=== PATIENT | female | born 1955 | race Caucasian/White ===

== ENCOUNTER 2018-03-02 05:55 | Day surgery (SDC) | payer OTHER ==
[2018-03-02] MEDS ORDERED: NA CHLORIDE 0.9% 1,000 ML ONE ×2 (06:15→07:06)
[2018-03-02] MEDS ORDERED: FENTANYL CITR 100 MCG/2 ML ONE (06:57)
[2018-03-02] MEDS ORDERED: PROPOFOL 200 MG/20 ML VIAL IV ONE (06:57)
[2018-03-02] MEDS ORDERED: MIDAZOLAM HCL 2 MG/2 ML INJ ONE (06:59)
[2018-03-02] MEDS ORDERED: LIDOCAINE 1% W/EPI 1:100,000 MDV 50 ML VIAL ONE (07:06)
[2018-03-02 10:05] VITALS: BP 110/56; TEMP 97.4; O2SAT 97
--- NOTE | 2018-03-02 20:17 | OP ---
Date of Procedure: 03/02/2018 Surgeon: Geeta Castellanos MD Demurrage Man: No assistance. Preoperative Diagnosis: Postmenopausal bleeding. Postoperative Diagnosis: Postmenopausal bleeding. Procedures Performed: Hysteroscopy, dilation and curettage. Anesthesia: MAC plus paracervical block. Specimens: Endometrial curettings, scant. Complications: No complications. Drains: No drains. Ebl: Minimal. Findings: Uterus anteflexed. No uterine prolapse was seen. Posterior wall without any prolapse. T he cervical canal was unremarkable. Endometrial cavity was empty. Scrapings were done. However, th e amount of tissue was scant. Please note that the POP-Q was -2, -2, -6, 3 cm thick, and 7, -3, -3, and -7. Description Of Procedure: After informed consent was verified, patient was taken back to the OR, vini last in a supine fashion on the operating table. After MAC was given and a speculum was placed, the c ervix was exposed. Anterior lip injected with 1% lidocaine mixed with 1:100,000 epinephrine 10 cc. A single-tooth tenaculum was placed on the cervix. The cervix appeared to be flushed with the vagina . Prep x3 with Betadine was done after getting a paracervical block. Then, the diagnostic hysterosc ope was used with a SlimLine to enter the cervical canal and traversed into the uterine cavity. The cavity was empty and the endometrium appeared to be unremarkable and atrophic. Both tubal ostia were visualized and normal. The scope was pulled out. There were no cavity distortions. The cervix was dilated to 14-[place]. A #1 endometrial curette was used to perform curettings. Scant amount of cur ettings were obtained. These were sent for permanent pathology to the pathologist. All the instrume nts were removed. There was hemostasis at the tenaculum placement site. The patient was recovered f rom anesthesia and taken to the PACU in stable condition. Instrument, needle, and sponge counts were correct at the end of the case. She tolerated the procedure well. She has an appointment in 1 week to see me back. ASTER/MARCIE Voice ID: [id number] Report ID: [id number]
== END 2018-03-02 08:25 | disposition home or self-care (01) ==
LOC: OR 05:55
PROVIDERS: ATTEND Obstetrics & Gynecology
PROC: 0UJD8ZZ Inspection of Uterus and Cervix, Via Natural or Artificial Opening Endoscopic (ICD-10-PCS; 2018-03-02)
PROC: 0UDB7ZX Extraction of Endometrium, Via Natural or Artificial Opening, Diagnostic (ICD-10-PCS; principal; 2018-03-02 07:00)
DX: N95.0 Postmenopausal bleeding (principal); E11.9 Type 2 diabetes mellitus without complications; I10 Essential (primary) hypertension; E03.9 Hypothyroidism, unspecified; I25.10 Atherosclerotic heart disease of native coronary artery without angina pectoris; Z95.5 Presence of coronary angioplasty implant and graft; Z79.02 Long term (current) use of antithrombotics/antiplatelets; Z79.82 Long term (current) use of aspirin; Z80.41 Family history of malignant neoplasm of ovary; Z80.49 Family history of malignant neoplasm of other genital organs; Z82.49 Family history of ischemic heart disease and other diseases of the circulatory system
CPT/HCPCS: 82962; 88305; J2250; J3010; J7030

== ENCOUNTER 2018-03-19 14:46 | Observation (INO) | payer OTHER ==
[2018-03-19 15:35] LABS: Absolute Lymphocytes (CBC) 2.7 K/uL (0.7-4.9); Absolute Monocytes 0.5 K/uL (0.1-1.3); Absolute Neutrophil 3.8 K/uL (1.8-8.0); Basophils % 1.1 % (0-1.3); Eosinophils % 3.9 % (0-4.4); Hematocrit 42.4 % (36.0-45.0); Lymphocytes % 36.3 % (15.3-44.8); MCH 30.5 pg (27.0-35.0); MCV 90.5 fL (80-100); MPV 10.7 fL (7.6-11.3); Monocytes % 7.3 % (3.3-12.3); RBC Red Blood Cell Count 4.69 M/uL (3.86-4.86)
[2018-03-19 15:46] LABS: Albumin 3.5 g/dL (3.4-5.0); Bilirubin Direct 0.1 mg/dL (0-0.2); Bilirubin Total 0.4 mg/dL (0.2-1.0); Potassium 3.5 mmol/L (3.5-5.1); Protein, Total 7.6 g/dL (6.4-8.2)
--- NOTE | 2018-03-19 16:07 | RAD REPORT ---
EXAM DESCRIPTION: RAD - Chest Single View - 03/19/2018 4:01 pm CLINICAL HISTORY: SOB Chest pain. COMPARISON: CHEST PA AND LAT 2 VIEW dated 06/15/2012 FINDINGS: Portable technique limits examination quality. The lungs are grossly clear. The heart is normal in size. No displaced fractures. IMPRESSION: No acute intrathoracic process suspected.
[2018-03-19 16:33] LABS: Protime INR 1.07
[2018-03-19] MEDS ORDERED: MECLIZINE HCL 12.5 MG TAB ONE (16:43)
[2018-03-19 17:00] LABS: Magnesium 1.6 mg/dL (1.8-2.4); Troponin (Emerg Dept Use Only) 0.03 ng/mL (0.0-0.045)
--- NOTE | 2018-03-19 17:10 | RAD REPORT ---
EXAM DESCRIPTION: CT - Head Brain Wo Cont - 03/19/2018 4:49 pm CLINICAL HISTORY: DIZZINESS Drowsiness COMPARISON: No comparisons TECHNIQUE: All CT scans are performed using dose optimization technique as appropriate and may inclu de automated exposure control or mA/KV adjustment according to patient size. FINDINGS: No intracranial hemorrhage, hydrocephalus or extra-axial fluid collection.No areas of brai n edema or evidence of midline shift. The paranasal sinuses and mastoids are clear. The calvarium is intact. IMPRESSION: No acute intracranial abnormality.
[2018-03-19 17:20] LABS: Urine Blood TRACE (NEG); Urine Glucose 2+ (NEG); Urine Protein NEGATIVE (NEG); Urine pH 5.5 (5.0-7.0)
[2018-03-19 17:50] LABS: Urine Bacteria 20-50 /HPF (<20); Urine Culture Reflex Order NOT NEEDED; Urine RBC <5 /HPF (NONE SEEN); Urine Yeast FEW (NONE SEEN)
--- NOTE | 2018-03-19 18:08 | EDPHYS ---
Physician Documentation [facility] Name: Lynda Tsang Age: 63 yrs Sex: Female : 1955 Arrival Date: 03/19/2018 Time: 14:47 Bed 23 Private MD: Kamaljit Peralta ED Physician Jimbo Montoya HPI: 03/19 15:02 This 63 yrs old Female presents to ER via Wheelchair with complaints of Blood jmm Pressure Problem - LOW. 15:02 The patient presents with dizziness. Onset: The symptoms/episode began/occurred jmm gradually, months. Modifying factors: The symptoms are alleviated by lying down, the symptoms are aggravated by standing up. This is a 63 year old female with a history of CAD, HTN, DM, HLP that presents to the ED with complaints of low blood pressure reading at home. Patient is concerned she may have lost too much blood. Patient currently denies vaginal bleeding but states that 2 weeks prior having a D and C due to abnormal vaginal bleeding. Patient states she develops dizziness mainly on moving and walking which has been ongoing for months. Patient states that yesterday developed increased weakness on exertion. . Historical: - Allergies: 14:54 Lisinopril; la1 14:54 CITRIC ACID; la1 - Home Meds: 15:28 Nature's Thyroid [Active]; Fish Oil oral oral [Active]; kr2 15:32 Jardiance oral oral [Active]; biotin oral 5000 mcg oral [Active]; B Complex Plus kr2 Vitamin C 78-94-69-5-300 mg oral cap [Active]; amlodipine 2.5 mg tab 1 tab once daily [Active]; clopidogrel 75 mg oral tab 1 tab once daily [Active]; chlorthalidone 25 mg Oral tab 1 tab once daily [Active]; losartan 100 mg oral tab 1 tab once daily [Active]; rosuvastatin 10 mg oral tab 1 tab once daily [Active]; aspirin 81 mg Oral TbEC 1 tab once daily [Active]; Vitamin D3 oral oral [Active]; - PMHx: 14:54 Hypertension; Diabetes - NIDDM; High Cholesterol; la1 - PSHx: 14:54 Heart stents; D \T\ C; cataract; rectocele; la1 - Immunization history:: Adult Immunizations up to date. - Social history:: Smoking status: unknown. - Ebola Screening: : No symptoms or risks identified at this time. ROS: 15:02 Constitutional: Negative for fever, chills, and weight loss, Cardiovascular: Negative [facility] for chest pain, palpitations, and edema, Respiratory: Negative for shortness of breath, cough, wheezing, and pleuritic chest pain. 15:02 Neuro: Positive for dizziness, weakness. 15:02 All other systems are negative. Exam: 15:02 Head/Face: atraumatic. [facility] 15:02 Constitutional: The patient appears alert, awake, anxious. 15:02 Cardiovascular: Rate: normal, Rhythm: regular, Pulses: no pulse deficits are appreciated. 15:02 Respiratory: the patient does not display signs of respiratory distress, Respirations: normal, Breath sounds: are clear throughout. 15:02 Abdomen/GI: Inspection: abdomen appears normal, Bowel sounds: normal, Palpation: abdomen is soft and non-tender, in all quadrants. 15:02 Back: ROM is normal. 15:02 Skin: Appearance: Color: normal in color. 15:02 Neuro: Orientation: is normal, Mentation: is normal, Memory: is normal, Cerebellar function: is grossly normal. 15:02 Psych: Behavior/mood is pleasant, cooperative. 15:02 Neuro: Cranial nerves: right lateral nystagmus. [facility] Vital Signs: 14:57 BP 150 / 70; Pulse 91; Resp 16; Temp 97.1; Pulse Ox 98% on R/A; Weight 95.71 kg; Height la1 5 ft. 8 in. (172.72 cm); 16:20 BP 144 / 68 LA Supine (auto/lg); Pulse 85; Pulse Ox 96% on R/A; jp3 16:24 BP 125 / 67 LA Sitting (auto/lg); Pulse 91; Pulse Ox 95% on R/A; jp3 16:26 BP 142 / 67 LA Standing (auto/lg); Pulse 101; Pulse Ox 95% on R/A; jp3 18:30 BP 145 / 68; Pulse 86; Resp 17; Pulse Ox 99% ; kr2 20:24 BP 133 / 55; Pulse 85; Resp 19; Pulse Ox 99% on R/A; kr2 21:20 BP 148 / 73; Pulse 82; Resp 17; Pulse Ox 99% on R/A; kr2 14:57 Body Mass Index 32.08 (95.71 kg, 172.72 cm) la1 MDM: 15:02 Patient medically screened. issac 18:05 Data reviewed: vital signs, nurses notes. Counseling: I had a detailed discussion with smitha the patient and/or guardian regarding: the historical points, exam findings, and any diagnostic results supporting the discharge/admit diagnosis, lab results, radiology results, the need for further work-up and treatment in the hospital. ED course: i discussed the patient with Dr. Barnett whom accepted admission. . 03/19 15:04 Order name: Basic Metabolic Panel; Complete Time: 16:03 [facility] 03/19 15:04 Order name: CBC with Diff; Complete Time: 16:03 [facility] 03/19 15:04 Order name: Creatinine for Radiology; Complete Time: 16:03 [facility] 03/19 15:04 Order name: Hepatic Function; Complete Time: 16:03 [facility] 03/19 15:04 Order name: Lipase; Complete Time: 16:03 [facility] 03/19 15:04 Order name: Type And Screen; Complete Time: 17:08 [facility] 03/19 15:17 Order name: Magnesium; Complete Time: 17:08 [facility] 03/19 15:17 Order name: NT PRO-BNP; Complete Time: 17:08 [facility] 03/19 15:17 Order name: PT-INR; Complete Time: 16:44 [facility] 03/19 15:17 Order name: Troponin (emerg Dept Use Only); Complete Time: 17:08 [facility] 03/19 17:10 Order name: Urine Dipstick--Ancillary (enter results); Complete Time: 17:33 sp 03/19 17:13 Order name: Urine Microscopic Only; Complete Time: 17:55 [facility] 03/19 17:13 Order name: Urine Culture [facility] 03/19 18:12 Order name: Basic Metabolic Panel [facility] 03/19 15:17 Order name: XRAY Chest (1 view); Complete Time: 16:16 [facility] 03/19 15:17 Order name: EKG; Complete Time: 15:18 [facility] 03/19 16:32 Order name: CT Head Brain wo Cont; Complete Time: 17:33 [facility] 03/19 18:12 Order name: Consistent Carb (ADA) [address] [facility] 03/19 18:12 Order name: EKG Electrocardiogram [facility] 03/19 18:12 Order name: EKG Electrocardiogram [facility] 03/19 18:13 Order name: CBC with Automated Diff [facility] 03/19 18:13 Order name: CBC with Automated Diff [facility] 03/19 18:13 Order name: Troponin I [facility] 03/19 18:13 Order name: Troponin I [facility] 03/19 18:13 Order name: Troponin I [facility] 03/19 18:22 Order name: Chest For PE Angio CT [facility] 03/19 19:05 Order name: CT [facility] 03/19 15:04 Order name: IV Saline Lock; Complete Time: 15:24 [facility] 03/19 15:04 Order name: Labs collected and sent; Complete Time: 15:24 [facility] 03/19 15:06 Order name: Orthostatic Blood Pressure; Complete Time: 16:37 [facility] 03/19 15:17 Order name: Cardiac monitoring; Complete Time: 15:25 [facility] 03/19 15:17 Order name: EKG - Nurse/Tech; Complete Time: 15:45 [facility] 03/19 15:17 Order name: O2 Per Protocol; Complete Time: 15:25 [facility] 03/19 15:17 Order name: O2 Sat Monitoring; Complete Time: 15:25 [facility] 03/19 18:12 Order name: EKG Electrocardiogram [facility] 03/19 18:12 Order name: EKG Electrocardiogram [facility] Administered Medications: 16:38 Drug: Meclizine 25 mg Route: PO; kr2 18:03 Follow up: Response: No adverse reaction kr2 18:31 Drug: Magnesium Sulfate 1 grams Route: IVPB; Infused Over: 1 hrs; Site: right wrist; kr2 20:26 Follow up: Response: No adverse reaction; IV Status: Completed infusion kr2 19:48 Not Given (Patient Refused): Lovenox 1 mg/kg Sub-Q once kr2 Disposition: 03/20 07:12 Co-signature as Attending Physician, Jimbo Montoya MD I agree with the assessment and issac plan of care. Disposition: 03/19/18 18:06 Hospitalization ordered by Phong Barnett for Observation. Preliminary diagnosis are Weakness, Abnormal electrocardiogram [ECG] [EKG]. - Bed requested for Telemetry/MedSurg (observation). - Status is Observation. kr2 - Condition is Stable. - Problem is new. - Symptoms are unchanged. UTI on Admission? Yes Signatures: Dispatcher [employer] EDMS Arline Curran, Jimbo Snowden RN, MD MD cha Mickail, Joel, PA PA [facility] Pete Larson RN RN tim1 Laura Jiménez RN RN kr2 Corrections: (The following items were deleted from the chart) 03/19 18:21 15:02 This is a 63 year old female with a history of CAD, HTN, DM, HLP that presents to [facility] the ED with complaints of low blood pressure reading at home. Patient is concerned she may have lost too much blood. Patient currently denies vaginal bleeding but states that 2 weeks prior having a D and C due to abnormal vaginal bleeding. Patient states she develops dizziness mainly on moving and walking which has been ongoing for months. Patient also complains of ringing of her ears. Patient states she is partially def in the right ear. . [facility] 20:34 18:06 Hospitalization Ordered by Phong Barnett MD for Observation. Preliminary diagnosis is Weakness; Abnormal electrocardiogram [ECG] [EKG]. Bed requested for Telemetry/MedSurg (observation). Status is Observation. Condition is Stable. Problem is new. Symptoms are unchanged. UTI on Admission? Yes. [facility] 21:32 20:34 03/19/2018 18:06 Hospitalization Ordered by Phong Barnett MD for Observation. kr2 Preliminary diagnosis is Weakness; Abnormal electrocardiogram [ECG] [EKG]. Bed requested for Telemetry/MedSurg (observation). Status is Observation. Condition is Stable. Problem is new. Symptoms are unchanged. UTI on Admission? Yes. mervin
--- NOTE | 2018-03-19 18:08 | ER ---
Nurse's Notes [facility] Name: Lynda Tsang Age: 63 yrs Sex: Female : 1955 Arrival Date: 03/19/2018 Time: 14:47 Bed 23 Private MD: Kamaljit Peralta Diagnosis: Weakness;Abnormal electrocardiogram [ECG] [EKG] Presentation: 03/19 14:55 Presenting complaint: Patient states: I had a D+ C on March [address] Marti sprague and on Tuesday I started bleeding again, pt states bleeding has stopped now but her her BP has been low at home the last 2 days. Transition of care: patient was not received from another setting of care. Onset of symptoms was March 19, 2018. Risk Assessment: Do you want to hurt yourself or someone else? Patient reports no desire to harm self or others. Initial Sepsis Screen: Does the patient meet any 2 criteria? No. Patient's initial sepsis screen is negative. Does the patient have a suspected source of infection? No. Patient's initial sepsis screen is negative. Care prior to arrival: None. 14:55 Method Of Arrival: Wheelchair la1 14:55 Acuity: ORESTES 3 la1 Historical: - Allergies: 14:54 Lisinopril; la1 14:54 CITRIC ACID; la1 - Home Meds: 15:28 Nature's Thyroid [Active]; Fish Oil oral oral [Active]; kr2 15:32 Jardiance oral oral [Active]; biotin oral 5000 mcg oral [Active]; B Complex Plus kr2 Vitamin C 54-93-96-5-300 mg oral cap [Active]; amlodipine 2.5 mg tab 1 tab once daily [Active]; clopidogrel 75 mg oral tab 1 tab once daily [Active]; chlorthalidone 25 mg Oral tab 1 tab once daily [Active]; losartan 100 mg oral tab 1 tab once daily [Active]; rosuvastatin 10 mg oral tab 1 tab once daily [Active]; aspirin 81 mg Oral TbEC 1 tab once daily [Active]; Vitamin D3 oral oral [Active]; - PMHx: 14:54 Hypertension; Diabetes - NIDDM; High Cholesterol; la1 - PSHx: 14:54 Heart stents; D \T\ C; cataract; rectocele; la1 - Immunization history:: Adult Immunizations up to date. - Social history:: Smoking status: unknown. - Ebola Screening: : No symptoms or risks identified at this time. Screenin:00 Abuse screen: Denies threats or abuse. Denies injuries from another. Nutritional kr2 screening: No deficits noted. Tuberculosis screening: No symptoms or risk factors identified. Fall Risk None identified. Assessment: 15:00 General: Appears in no apparent distress. comfortable, well groomed, well developed, kr2 well nourished, Behavior is calm, cooperative, appropriate for age. Pain: Denies pain. Neuro: Level of Consciousness is awake, alert, obeys commands, Oriented to person, place, time, situation. Cardiovascular: Capillary refill < 3 seconds in bilateral fingers Patient's skin is warm and dry. Respiratory: Airway is patent Respiratory effort is even, unlabored, Respiratory pattern is regular, symmetrical. GI: Abdomen is flat, non-distended, Bowel sounds present X 4 quads. Abd is soft and non tender X 4 quads. : Reports vaginal bleeding that is bright red, brown, light flow. EENT: Oral mucosa is moist. Derm: Skin is intact, is healthy with good turgor, Skin is pink, warm \T\ dry. Musculoskeletal: Circulation, motion, and sensation intact. 16:00 Reassessment: Patient appears in no apparent distress at this time. Patient and/or kr2 family updated on plan of care and expected duration. Pain level reassessed. Patient is alert, oriented x 3, equal unlabored respirations, skin warm/dry/pink. 16:48 Reassessment: Patient in CT at this time. kr2 17:30 Reassessment: Patient appears in no apparent distress at this time. Patient and/or kr2 family updated on plan of care and expected duration. Pain level reassessed. Patient is alert, oriented x 3, equal unlabored respirations, skin warm/dry/pink. Patient denies pain at this time. Patient states feeling better. 18:30 Reassessment: Patient appears in no apparent distress at this time. Patient and/or kr2 family updated on plan of care and expected duration. Pain level reassessed. Patient is alert, oriented x 3, equal unlabored respirations, skin warm/dry/pink. Patient denies pain at this time. 19:30 Reassessment: Patient appears in no apparent distress at this time. Patient and/or kr2 family updated on plan of care and expected duration. Pain level reassessed. Patient is alert, oriented x 3, equal unlabored respirations, skin warm/dry/pink. Patient denies pain at this time. 20:09 Reassessment: Received call from Dr. Barnett. Telephone order read back for .45% kr2 Normal Saline to be administered \T\ 70ml/hour. Order entered in [employer], see [employer] MAR. 20:23 Reassessment: Patient appears in no apparent distress at this time. Patient and/or kr2 family updated on plan of care and expected duration. Pain level reassessed. Patient is alert, oriented x 3, equal unlabored respirations, skin warm/dry/pink. Patient states she has not had any further vaginal bleeding since arrival to the hospital Patient denies pain at this time. Patient states feeling better. Vital Signs: 14:57 BP 150 / 70; Pulse 91; Resp 16; Temp 97.1; Pulse Ox 98% on R/A; Weight 95.71 kg; Height la1 5 ft. 8 in. (172.72 cm); 16:20 BP 144 / 68 LA Supine (auto/lg); Pulse 85; Pulse Ox 96% on R/A; jp3 16:24 BP 125 / 67 LA Sitting (auto/lg); Pulse 91; Pulse Ox 95% on R/A; jp3 16:26 BP 142 / 67 LA Standing (auto/lg); Pulse 101; Pulse Ox 95% on R/A; jp3 18:30 BP 145 / 68; Pulse 86; Resp 17; Pulse Ox 99% ; kr2 20:24 BP 133 / 55; Pulse 85; Resp 19; Pulse Ox 99% on R/A; kr2 21:20 BP 148 / 73; Pulse 82; Resp 17; Pulse Ox 99% on R/A; kr2 14:57 Body Mass Index 32.08 (95.71 kg, 172.72 cm) la1 ED Course: 14:47 Patient arrived in ED. sb2 14:48 Kamaljit Peralta MD is Private Physician. sb2 14:57 Triage completed. la1 14:57 Arm band placed on left wrist. la1 14:58 Roberto Mojica PA is [facility]. jmm 14:58 Jimbo Montoya MD is Attending Physician. jmm 15:00 Patient has correct armband on for positive identification. Bed in low position. Call kr2 light in reach. Side rails up X 1. teletypesetter monitor on. Pulse ox on. NIBP on. Door closed. Warm blanket given. Head of bed elevated. 15:05 Laura Jiménez, MARCIAL is Primary Nurse. kr2 15:15 Inserted saline lock: 20 gauge in right wrist, using aseptic technique. kr2 16:01 XRAY Chest (1 view) In Process Unspecified. EDMS 16:03 X-ray completed. Portable x-ray completed in exam room. Patient tolerated procedure kp1 well. 16:48 CT completed. Patient tolerated procedure well. Patient moved back from CT. bq 16:49 CT Head Brain wo Cont In Process Unspecified. EDMS 17:17 Urine Dipstick--Ancillary (enter results) Sent. jp3 17:17 Urine Microscopic Only Sent. jp3 17:17 Urine Culture Sent. jp3 18:06 Phong Barnett MD is Hospitalizing Provider. [facility] 18:58 CT completed. Patient moved to CT via wheelchair. Patient moved back from CT. cw1 20:23 Repeat lab(s) drawn. by va, sent to lab. kr2 20:55 No provider procedures requiring assistance completed. Patient admitted, IV remains in kr2 place. Administered Medications: 16:38 Drug: Meclizine 25 mg Route: PO; kr2 18:03 Follow up: Response: No adverse reaction kr2 18:31 Drug: Magnesium Sulfate 1 grams Route: IVPB; Infused Over: 1 hrs; Site: right wrist; kr2 20:26 Follow up: Response: No adverse reaction; IV Status: Completed infusion kr2 19:48 Not Given (Patient Refused): Lovenox 1 mg/kg Sub-Q once kr2 Outcome: 18:06 Decision to Hospitalize by Provider. [facility] 20:58 Admitted to Med/surg accompanied by tech, via stretcher, room 216, with chart, Report kr2 called to MARCIAL Olivier 20:58 Condition: stable 20:58 Instructed on the need for admit, Demonstrated understanding of instructions. 21:32 Patient left the ED. kr2 Signatures: Dispatcher [employer] EDMS Roberto Mojica PA PA Ann-Marie Arias Crystal cw1 Pete Larson RN RN la1 Lucille Welch kp1 Laura Jiménez RN RN kr2 Rosalinda Pavon sb2 Ramone Pozo jp3 Corrections: (The following items were deleted from the chart) 15:45 15:15 Inserted saline lock: 20 gauge in left wrist, using aseptic technique. kr2 kr2 20:24 20:23 Reassessment: Patient appears in no apparent distress at this time. Patient kr2 and/or family updated on plan of care and expected duration. Pain level reassessed. Patient is alert, oriented x 3, equal unlabored respirations, skin warm/dry/pink. Patient denies pain at this time. Patient states feeling better. kr2 20:55 18:31 Magnesium Sulfate 1 grams IVPB in right antecubital over 1 hrs kr2 kr2
[2018-03-19] MEDS ORDERED: ACETAMINOPHEN 500 MG TAB PO PRN (18:11)
[2018-03-19] MEDS ORDERED: MAGNESIUM SULFATE 1 gm IVPB 1 GM/100 ML BAG IV ONE (18:34)
[2018-03-19] MEDS ORDERED: ENOXAPARIN 100 MG/ML SYR SQ ONE (18:51)
--- NOTE | 2018-03-19 19:04 | RAD REPORT ---
EXAM DESCRIPTION: CT - Chest For Pe Angio - 03/19/2018 6:56 pm CLINICAL HISTORY: Chest pain. shortness of breath COMPARISON: No comparisons TECHNIQUE: CT angiogram of the pulmonary arteries was performed with MIP. All CT scans are performed using dose optimization technique as appropriate and may include automated exposure control or mA/KV adjustment according to patient size. FINDINGS: No evidence of pulmonary thromboembolism. No acute aortic finding demonstrated. The lungs are clear. No significant pericardial or pleural fluid. 9 mm pericardial lymph node identified. No concerning bony finding. IMPRESSION: No evidence of pulmonary thromboembolism. No acute lung findings.
--- NOTE | 2018-03-19 19:24 | P.HP ---
Certification for Inpatient With expected LOS: <2 Midnights Practitioner: I am a practitioner with admitting privileges, knowledge of patient current condition, hospital course, and medical plan of care. Services: Services provided to patient in accordance with Admission requirements found in Title 42 Section 412.3 of the Code of Federal Regulations Patient History Date of Service: 03/19/18 Reason for admission: Dizziness History of Present Illness: Patient is 63 years of age has experienced intermittent dizziness as got worse over the past 2 days an 8 she felt woozy on standing up patient recently had a D and C done by Dr. Alfaro March 01. Recently she noticed some vaginal bleeding. History of coronary artery disease patient denies any chest pain the some associated shortness of breath patient has deliberately lost 20 lb in weight with dieting as also recently started on a new medication denies any weakness of extremities for symptoms of stroke Allergies adhesive Allergy (Verified 02/28/18 13:41) Rash hydrocodone [Hydrocodone] Allergy (Verified 02/28/18 13:41) very sensitive, over sedated, nausea lisinopril Adverse Reaction (Mild, Verified 02/28/18 13:41) COUGH latex Adverse Reaction (Verified 02/28/18 13:41) unknown Home Medications: Amlodipine [Norvasc*] 2.5 mg PO [id number] 06/11/15 Aspirin 81 mg PO DAILY 06/11/15 Biotin [Nail-Ex] 5,000 mcg PO DAILY 06/11/15 Chlorthalidone [Hygroton 25mg Tab*] 25 mg PO [id number] 06/11/15 Clopidogrel Bisulfate [Plavix*] 75 mg PO DAILY 06/11/15 Losartan Potassium 100 mg PO [id number] 06/11/15 Rosuvastatin [Crestor*] 10 mg PO DAILY 06/11/15 Thyroid Tab [[place] Thyroid*] 30 mg PO DAILY 06/11/15 Ferrous Sulfate [Iron] 65 mg PO DAILY 06/22/16 L.acidoph,Paracasei, B.lactis [Probiotic] 1 each PO DAILY 06/22/16 Dulaglutide [Trulicity] 1.5 mg SQ DAILY 02/28/18 Empagliflozin [Jardiance] 25 mg PO DAILY 02/28/18 Insulin Degludec [Tresiba Flextouch U-100] 0 unit SQ DAILY 02/28/18 - Past Medical/Surgical History Diabetic: Yes -: Hypothirod -: hypertension -: hypothyroid -: Macular edema -: Coronary artery dizzy -: right foot -: 2 cardiac stents -: edilma cataract lens implants - Family History Father -: Cancer, Liver disease - Social History Alcohol use: No CD- Drugs: No Caffeine use: No Review of Systems General: Weakness Respiratory: Shortness of Breath Neurological: As per HPI Physical Examination - Vital Signs Temperature: 97.1 F Blood Pressure: 150/70 Pulse: 91 Respirations: 16 Pulse Ox (%): 98 - Physical Exam General: Alert, Oriented x3 HEENT: Atraumatic Neck: Supple Respiratory: Clear to auscultation bilaterally Cardiovascular: No edema, Regular rate/rhythm, Normal S1 S2 Gastrointestinal: Normal bowel sounds, Soft and benign Musculoskeletal: No clubbing, No swelling Integumentary: No rashes, No breakdown Neurological: Normal speech, Normal strength at 5/5 x4 extr, Cranial nerves 3- 12 intact - Studies Laboratory Data (last 24 hrs) 03/19/18 15:55: PT 12.6 H, INR 1.07 03/19/18 15:55: Magnesium 1.6 L 03/19/18 15:15: Creatinine 1.20 03/19/18 15:15: WBC 7.3, Hgb 14.3, Hct 42.4, Plt Count 237 03/19/18 15:15: Sodium 139, Potassium 3.5, BUN 26 H, Creatinine 1.20, Glucose 127 H, Total Bilirubin 0.4, AST 22, ALT 28, Alkaline Phosphatase 73, Lipase 69 L Assessment and Plan - Problems (Diagnosis) (1) Dizziness Current Visit: Yes Status: Acute Plan: Patient is 63 years of age admitted with acute on chronic dizziness does wear present over the past 2 days the also had a D and C and was complaining of some vaginal bleeding . Patient had a slight drop and a blood pressure phone sitting but not on standing no evidence of thromboembolism chest x-rays clear she denies any chest pain is a history of coronary artery disease she has had some stents put in seen by a Dr. Almazan recently troponins is so far negative minimal EKG changes as per ER physician continue to monitor her ambulate patient has mild hypercalcemia BNP is also elevated Patient is taking in chart a in's amlodipine Plavix chlorthalidone he has been not been verified yet possible that she has had side effect of medication also has mild hypo magnesium may be side effect of chlorthalidone - Advance Directives Does patient have a Living Will: No Does patient have a Durable POA for Healthcare: No
[2018-03-19] MEDS: NACHLORIDE 0.45% 1,000 ML IV SCH (20:00)
[2018-03-19] MEDS ORDERED: NACHLORIDE 0.45% 1,000 ML IV ONE (20:06)
[2018-03-19 21:47] VITALS: BMI 32.5
[2018-03-20] MEDS ORDERED: NITROGLYCERIN 0.4 MG/TAB SL ONE (04:38)
[2018-03-20 05:37] LABS: Absolute Lymphocytes (CBC) 2.7 K/uL (0.7-4.9); Absolute Monocytes 0.7 K/uL (0.1-1.3); Basophils % 0.9 % (0-1.3); Eosinophils % 3.7 % (0-4.4); Lymphocytes % 35.1 % (15.3-44.8); MCH 30.7 pg (27.0-35.0); MCV 90.2 fL (80-100); MPV 10.8 fL (7.6-11.3); Monocytes % 8.9 % (3.3-12.3); RBC Red Blood Cell Count 4.32 M/uL (3.86-4.86)
[2018-03-20 05:55] LABS: Potassium 3.4 mmol/L (3.5-5.1)
--- NOTE | 2018-03-20 05:56 | P.PN ---
Date of Service: 03/20/18 I was called with possible patient was complaining of chest pain . She described like a tightness sensation in substernal area. Previous to start the pain, the patient has had a short episode of SVT, about 6 seconds reported by telemetry. Subsequently she received 1 tab of nitro SL, resolving completely her symptoms. EKG shows no new changes compared with previous. Will order serial cardiac enzymes, track surfacing machine operator evaluation and echocardiogram.
--- NOTE | 2018-03-20 08:05 | EKG ---
Test Date: 2018-03-20 Test Time: 04:21:27 Roll Line Operator: RENÉ MEASUREMENT RESULTS: Intervals: Rate: 74 ID: [id number] QRSD: 84 QT: 370 QTc: 410 Annabella: P: 79 ID: [id number] QRS: 87 T: 8 INTERPRETIVE STATEMENTS: Normal sinus rhythm Nonspecific ST and T wave abnormality Abnormal ECG Compared to ECG 03/19/2018 15:34:12 T-wave abnormality no longer present ST (T wave) deviation still present Electronically Signed On 03-20-18 08:04:48 CDT by Joaquin Almazan
--- NOTE | 2018-03-20 08:09 | EKG ---
Test Date: 2018-03-19 Test Time: 15:34:12 Mmi Teacher: JILLIAN MEASUREMENT RESULTS: Intervals: Rate: 81 [place]: 162 QRSD: 80 QT: 378 QTc: 439 Tolar: P: 15 [place]: 162 QRS: 80 T: -11 INTERPRETIVE STATEMENTS: Normal sinus rhythm Nonspecific ST abnormality Non specific T wave abnormality Abnormal ECG Compared to ECG 06/12/2015 06:49:56 T-wave abnormality still present Electronically Signed On 03-20-18 08:08:58 CDT by Joaquin Almazan
[2018-03-20] MEDS ORDERED: ASPIRIN 81 MG CHEWABLE TABLET PO SCH (09:00)
[2018-03-20] MEDS: ROSUVASTATIN 10 MG TAB PO SCH (09:00)
[2018-03-20] MEDS: HOME MED 1 EA UNK (Empagliflozin [Jardiance] 25 MG) PO SCH (09:00)
[2018-03-20] MEDS: ASPIRIN EC 81 MG TAB PO SCH (09:00)
[2018-03-20] MEDS: BIOTIN 5000 MCG PO SCH (09:00)
[2018-03-20] MEDS ORDERED: HOME MED 1 EA UNK (Dulaglutide [Trulicity] 1.5 MG) SQ SCH (09:00)
[2018-03-20] MEDS: THYROID 30 MG TAB PO SCH (09:00)
[2018-03-20] MEDS ORDERED: REGADENOSON 0.4 MG/5 ML SYR IV ONE (09:19)
[2018-03-20] MEDS: NACHLORIDE 0.45% 1,000 ML IV SCH (11:20)
--- NOTE | 2018-03-20 11:39 | RAD REPORT ---
EXAM DESCRIPTION: NM - Rest Stress Cardiac Imaging - 03/20/2018 11:20 am CLINICAL HISTORY: Chest pain COMPARISON: None. TECHNIQUE: The patient was administered 10.4 mCi of Tc 99m Sestamibi prior to resting SPECT imaging of the heart. The patient was then administered 31.9 mCi of Tc 99m Sestamibi following exercise or ph armacologic stress. Multiplanar SPECT images were reviewed. FINDINGS: The end diastolic volume is 78 ml, the end systolic volume is 29 ml, and the ejection frac tion is 63 %. No stress-induced ischemic changes are identifiable. There is a moderately large fixed defect along t he inferolateral wall that could be scarring, diaphragm attenuation or a combination. IMPRESSION: No stress-induced ischemic change. Moderate fixed defect inferolateral wall could be scarring, attenuation artifact or a combination. Ventricular volumes and ejection fraction are normal.
--- NOTE | 2018-03-20 12:44 | TREADPHA ---
DX: CHEST PAIN Date of Study: 03/20/2018 Ht: 5 8 Wt: 214 lb 0 oz Consulting Physician: KATI MEDICATIONS: TYLENOL, ASPIRIN, HYGROTON, CRESTOR, ARMOUR THYROID. HISTORY: 63 YEAR OLD FEMALE WITH COMPLAINTS OF CHEST PAIN. MEDICAL HISTORY: HYPERTENSION, DIABETES MELLITUS, HIGH CHOLESTEROL, 2 CARDIAC STENTS PHYSICIAL EXAMINATION: RESTING B.P.: 127/67 RESTING H.R.: 87 RESTING EKG: SINUS NONSPECIFIC ST AND T ABNORMALITY. PROTOCOL: LEXISCAN EXERCISE TIME: 3:30 B.P. AT PEAK STRESS: 149/75 IMPRESSION: LEXISCAN INJECTED, CARDIOLITE INJECTED PER PROTOCOL. SEE NUCLEAR MEDICINE REPORT. NO SUPRAVENTRICULAR TACHYCARDIA. NO VENTRICULAR TACHYCARDIA. NO PREMATURE VENTRICULAR COMPLEXES. PAIN 8/10 AFTER ADMINISTRATION OF LEXISCAN. EASED UP TO LESS THEN 5 IN RECOVERY. NONDIAGNOSTIC EXERCISE LEXISCAN STRESS.
--- NOTE | 2018-03-20 13:02 | P.PN ---
Subjective Date of Service: 03/20/18 Chief Complaint: Dizziness Patient seen and examined at bedside with RN. Chart reviewed. Case discussed with cardiology at this time. Patient has no complaints to offer overnight. Is currently awaiting stress test this morning Review of Systems 10-point ROS is otherwise unremarkable Physical Examination - Vital Signs Temperature: 97.8 F Blood Pressure: 157/72 Pulse: 77 Respirations: 16 Pulse Ox (%): 99 - Physical Exam General: Alert, In no apparent distress HEENT: Atraumatic, PERRLA, EOMI Neck: Supple, JVD not distended Respiratory: Clear to auscultation bilaterally, Normal air movement Cardiovascular: Regular rate/rhythm, Normal S1 S2 Gastrointestinal: Normal bowel sounds, No tenderness Musculoskeletal: No tenderness Integumentary: No rashes Neurological: Normal speech, Normal tone, Normal affect Lymphatics: No axilla or inguinal lymphadenopathy - Studies Laboratory Data (last 24 hrs) 03/19/18 15:55: PT 12.6 H, INR 1.07 03/19/18 15:55: Magnesium 1.6 L 03/19/18 15:15: Creatinine 1.20 03/19/18 15:15: WBC 7.3, Hgb 14.3, Hct 42.4, Plt Count 237 03/19/18 15:15: Sodium 139, Potassium 3.5, BUN 26 H, Creatinine 1.20, Glucose 127 H, Total Bilirubin 0.4, AST 22, ALT 28, Alkaline Phosphatase 73, Lipase 69 L Medications List Reviewed: Yes Assessment And Plan - Current Problems (Diagnosis) (1) Weakness Current Visit: Yes Status: Acute Plan: Generalized weakness most likely secondary to urinary tract infection versus recent D and C. -IV fluids at this time and antibiotics. -will monitor CBC closely -consulted gun profiler. Awaiting recommendations -physical therapy consult as well (2) UTI (urinary tract infection) Current Visit: Yes Status: Acute Plan: UA with UTI -Culture with Gram - rods -IV rocephin for now Qualifiers: Urinary tract infection type: acute cystitis Hematuria presence: without hematuria Qualified Code(s): N30.00 - Acute cystitis without hematuria (3) HTN (hypertension) Current Visit: Yes Status: Chronic Qualifiers: Hypertension type: essential hypertension Qualified Code(s): I10 - Essential (primary) hypertension (4) Hypothyroid Current Visit: Yes Status: Chronic Qualifiers: Hypothyroidism type: acquired Qualified Code(s): E03.9 - Hypothyroidism, unspecified (5) Diabetes Current Visit: Yes Status: Chronic Qualifiers: Diabetes mellitus type: type 2 Diabetes mellitus retirement insulin use: without termite treater use Diabetes mellitus complication status: without complication Qualified Code(s): E11.9 - Type 2 diabetes mellitus without complications (6) CAD (coronary artery disease) Current Visit: Yes Status: Chronic Qualifiers: Coronary Disease-Associated Artery/Lesion type: [place] artery [place] vs. transplanted heart: [place] heart Associated angina: without angina Qualified Code(s): I25.10 - Atherosclerotic heart disease of [place] coronary artery without angina pectoris Discharge Plan: Home Plan to discharge in: 24 Hours - Code Status/Comfort Care Code Status Assessed: Yes Critical Care: No
--- NOTE | 2018-03-20 13:27 | CON ---
Chief Complaint: Dizziness, low blood pressure. History Of Present Illness: Ms. Tsang has a history of CAD. She had a right coronary stent in 2013 an d in 2016 had more stents in the right coronary artery as well as plain old balloon angioplasty at th e ostium of the posterior descending and the right coronary. These procedures went well. She has parker d stress test since then that looked good. About 6 months ago, she underwent a surgery with Dr. Carmen singh that involved repair of rectocele, suspension of the bladder and various things and then about 2 weeks ago, she had a dilation and curettage of the uterus because of the dysfunctional uterine bleed ing. Then she started having more uterine bleeding. Her hemoglobin has not dropped significantly in spite of the bleeding she reports. She notes when she walks, she gets out of breath, tight in the c hest, a pattern that seems fairly much like stable angina, although perhaps slightly worse than befor e. She is allergic to adhesive, hydrocodone, lisinopril and Lasix. She has a history of diabetes, h ypertension, dyslipidemia, coronary heart disease. She uses no tobacco. Physical Examination: Vital Signs: 5 feet 8 inches, 214 pounds. Blood pressure was 90/44 this morning. HEENT: Normal. Lungs: Clear. Abdomen: Soft. Extremities: Normal. Impression: The patient may be getting worsening angina. We will ask her to undergo a stress test geovanni REVELES Voice ID: [id number] Report ID: [id number]
[2018-03-20] MEDS: CEFTRIAXONE/SWI 1gm 1 GM/10 ML SYR IV SCH (15:06)
[2018-03-21] MEDS: NACHLORIDE 0.45% 1,000 ML IV SCH (00:44)
[2018-03-21] MEDS ORDERED: LOSARTAN POTASSIUM 50 MG TABLET PO SCH ×2 (06:00→09:00)
[2018-03-21] MEDS ORDERED: CHLORTHALIDONE 25 MG TAB PO SCH ×2 (06:00→09:00)
[2018-03-21] MEDS: BIOTIN 5000 MCG PO SCH (09:00)
[2018-03-21] MEDS: HOME MED 1 EA UNK (Empagliflozin [Jardiance] 25 MG) PO SCH (09:00)
[2018-03-21] MEDS: ROSUVASTATIN 10 MG TAB PO SCH (10:35)
[2018-03-21] MEDS: THYROID 30 MG TAB PO SCH (10:36)
[2018-03-21] MEDS: CEFTRIAXONE/SWI 1gm 1 GM/10 ML SYR IV SCH (10:36)
[2018-03-21] MEDS: ASPIRIN EC 81 MG TAB PO SCH (10:36)
[2018-03-21 11:00] VITALS: O2SAT 97
[2018-03-21 12:47] VITALS: BP 125/58; TEMP 98.1
--- NOTE | 2018-03-21 13:42 | P.DS ---
Admission Date: 03/19/18 Discharge Date: 03/21/18 Disposition: ROUTINE DISCHARGE Discharge Condition: GOOD Reason for Admission: Dizziness Consultations: SHIFT MECHANIC Cardiology - Problems (1) Weakness Current Visit: Yes Status: Acute (2) UTI (urinary tract infection) Current Visit: Yes Status: Acute Qualifiers: Urinary tract infection type: acute cystitis Hematuria presence: without hematuria Qualified Code(s): N30.00 - Acute cystitis without hematuria (3) HTN (hypertension) Current Visit: Yes Status: Chronic Qualifiers: Hypertension type: essential hypertension Qualified Code(s): I10 - Essential (primary) hypertension (4) Hypothyroid Current Visit: Yes Status: Chronic Qualifiers: Hypothyroidism type: acquired Qualified Code(s): E03.9 - Hypothyroidism, unspecified (5) Diabetes Current Visit: Yes Status: Chronic Qualifiers: Diabetes mellitus type: type 2 Diabetes mellitus assisted insulin use: without intermodal customer service use Diabetes mellitus complication status: without complication Qualified Code(s): E11.9 - Type 2 diabetes mellitus without complications (6) CAD (coronary artery disease) Current Visit: Yes Status: Chronic Qualifiers: Coronary Disease-Associated Artery/Lesion type: [place] artery [place] vs. transplanted heart: [place] heart Associated angina: without angina Qualified Code(s): I25.10 - Atherosclerotic heart disease of [place] coronary artery without angina pectoris Brief History of Present Illness: Patient is 63 years of age has experienced intermittent dizziness as got worse over the past 2 days an 8 she felt woozy on standing up patient recently had a D and C done by Dr. Alfaro March 01. Recently she noticed some vaginal bleeding. History of coronary artery disease patient denies any chest pain the some associated shortness of breath patient has deliberately lost 20 lb in weight with dieting as also recently started on a new medication denies any weakness of extremities for symptoms of stroke Hospital Course: Overall during the hospital stay patient remained stable Patient was initially admitted to the hospital for dizziness was found to have anemia most likely causing her generalized weakness and dizziness after having a D&C. Patient had transfusion done here in the hospital. Patient also had cardiac workup done here in the hospital due to initial complains of having some shortness of breath and mild chest pain on admission. Patient had an echocardiogram done and stress test which were both negative for any acute abnormality. Patient also had a urinalysis done here which was consistent with the E. coli in the urine. Patient thus was treated with Levaquin and was given a prescription of Levaquin when she was discharged home. Patient's dizziness and generalized weakness resolved once her hemoglobin was stable and patient was able to ambulate around the room and outside in the hospital along with able to tolerate her diet and thus was discharged home under stable condition. Patient was asked to follow up with OBGYN and Cardiology once discharged from the hospital about 1-2 days Vital Signs/Physical Exam: Temp Pulse Resp BP Pulse Ox 98.1 F 77 16 125/58 L 97 03/21/18 12:00 03/21/18 12:00 03/21/18 12:00 03/21/18 12:00 03/21/18 12:00 General: Alert, In no apparent distress HEENT: Atraumatic, PERRLA, EOMI Neck: Supple, JVD not distended Respiratory: Clear to auscultation bilaterally, Normal air movement Cardiovascular: Regular rate/rhythm, Normal S1 S2 Gastrointestinal: Normal bowel sounds, No tenderness Musculoskeletal: No tenderness Integumentary: No rashes Neurological: Normal speech, Normal tone, Normal affect Lymphatics: No axilla or inguinal lymphadenopathy Laboratory Data at Discharge: WBC 7.8 K/uL (4.3-10.9) 03/20/18 05:17 Hgb 13.3 g/dL (12.0-15.0) 03/20/18 05:17 Hct 39.0 % (36.0-45.0) 03/20/18 05:17 Plt Count 236 K/uL (152-406) 03/20/18 05:17 PT 12.6 SECONDS (9.5-12.5) H 03/19/18 15:55 INR 1.07 03/19/18 15:55 Sodium 139 mmol/L (136-145) 03/20/18 05:17 Potassium 3.4 mmol/L (3.5-5.1) L 03/20/18 05:17 BUN 25 mg/dL (7-18) H 03/20/18 05:17 Creatinine 1.20 mg/dL (0.55-1.3) 03/20/18 05:17 Glucose 107 mg/dL (74-106) H 03/20/18 05:17 Magnesium 1.6 mg/dL (1.8-2.4) L 03/19/18 15:55 Total Bilirubin 0.4 mg/dL (0.2-1.0) 03/19/18 15:15 AST 22 U/L (15-37) 03/19/18 15:15 ALT 28 U/L (12-78) 03/19/18 15:15 Alkaline Phosphatase 73 U/L (45-117) 03/19/18 15:15 Troponin I 0.03 ng/mL (0.0-0.045) 03/20/18 05:17 Lipase 69 U/L (73-393) L 03/19/18 15:15 Home Medications: Aspirin 81 mg PO DAILY 06/11/15 Biotin [Nail-Ex] 5,000 mcg PO DAILY 06/11/15 Chlorthalidone [Hygroton 25mg Tab*] 25 mg PO [id number] 06/11/15 Clopidogrel Bisulfate [Plavix*] 75 mg PO DAILY 06/11/15 Losartan Potassium 100 mg PO [id number] 06/11/15 Rosuvastatin [Crestor*] 10 mg PO DAILY 06/11/15 Thyroid Tab [[place] Thyroid*] 30 mg PO DAILY 06/11/15 Dulaglutide [Trulicity] 1.5 mg SQ SEECOM 02/28/18 Empagliflozin [Jardiance] 25 mg PO DAILY 02/28/18 Levofloxacin [Levaquin] 500 mg PO DAILY #14 tablet 03/21/18 New Medications: Levofloxacin [Levaquin] 500 mg PO DAILY #14 tablet Patient Discharge Instructions: Please f.u with Dr Navarro and PCP in 1 to 2 week post discharge. New medication. Levaquin 500mg daily for 14 days. Change of medication. Stop Taking Norvasc. Decrease Losartan to 50mg daily for now. Check you BP everyday and keep a log and bring it to the PCP office. Diet: Regular Activity: Ad partha Followup: Reji Navarro MD [ACTIVE - CAN ADMIT] - 1 Week Kamaljit Peralta MD [Primary Care Provider] - 1 Week
== END 2018-03-21 13:44 | disposition home or self-care (01) ==
LOC: ER 14:46 → ERHOLD 18:10 → 2ND 20:56
PROVIDERS: ADMIT Internal Medicine Sleep Medicine; ATTEND Internal Medicine Sleep Medicine
DX: D64.9 Anemia, unspecified (principal); N30.00 Acute cystitis without hematuria; N93.8 Other specified abnormal uterine and vaginal bleeding; I25.10 Atherosclerotic heart disease of native coronary artery without angina pectoris; R07.9 Chest pain, unspecified; B96.20 Unspecified Escherichia coli [E. coli] as the cause of diseases classified elsewhere; I47.1 Supraventricular tachycardia; I95.9 Hypotension, unspecified; E78.5 Hyperlipidemia, unspecified; E03.9 Hypothyroidism, unspecified; E11.9 Type 2 diabetes mellitus without complications; Z98.890 Other specified postprocedural states; Z86.73 Personal history of transient ischemic attack (TIA), and cerebral infarction without residual deficits; Z88.6 Allergy status to analgesic agent; Z88.8 Allergy status to other drugs, medicaments and biological substances
CPT/HCPCS: 36415; 70450; 71045; 71275; 78452; 80048; 80076; 81003; 81015; 82962; 83690; 83735; 83880; 84484; 85025; 85610; 86850; 86900; 86901; 87077; 87086; 87088; 87186; 93005; 93017; 96365; 96366; 99285; A9500; G0378; J0696; J1650; J2785; J3475; Q9967

== ENCOUNTER 2018-06-23 07:03 | Day surgery (SDC) | payer OTHER ==
[2018-06-22 14:42] LABS: Absolute Lymphocytes (CBC) 2.2 K/uL (0.7-4.9); Absolute Monocytes 0.5 K/uL (0.1-1.3); Absolute Neutrophil 3.9 K/uL (1.8-8.0); Eosinophils % 2.5 % (0-4.4); Lymphocytes % 32.6 % (15.3-44.8); MPV 10.5 fL (7.6-11.3); Monocytes % 6.9 % (3.3-12.3); RBC Red Blood Cell Count 4.38 M/uL (3.86-4.86)
[2018-06-22 14:58] LABS: Protime INR 1.08
[2018-06-22 15:07] LABS: Potassium 3.3 mmol/L (3.5-5.1)
[2018-06-23] MEDS ORDERED: LIDOCAINE 1% MPF 30 ML VIAL ONE (07:21)
[2018-06-23] MEDS ORDERED: HEPA 1000U/500MLS 1,000 UNIT/500 ML BAG IV ONE (07:22)
[2018-06-23] MEDS ORDERED: NA CHLORIDE 0.9% 500 ML ONE (07:36)
[2018-06-23] MEDS ORDERED: HEPARIN 5000 UNIT/ML 1 ML VIAL ONE (08:05)
[2018-06-23] MEDS ORDERED: AMIODARONE Inj 900 MG/18 mL (=50 MG/ML) VIAL IV ONE (08:05)
[2018-06-23] MEDS ORDERED: NITROGLYCERIN/D5W 25 MG/250 ML BTL IV ONE ×2 (08:06→08:16)
[2018-06-23] MEDS ORDERED: NITROGLYCERIN 100 MCG/ML SYR (for cath lab use only) IV ONE (08:06)
[2018-06-23] MEDS ORDERED: NICARDIPINE HCL 25 MG/10 ML IV ONE (08:06)
[2018-06-23] MEDS ORDERED: MIDAZOLAM HCL 2 MG/2 ML INJ ONE ×2 (08:06→08:21)
[2018-06-23] MEDS ORDERED: ATROPINE SULF 1 MG/10 ML SYR IV ONE (08:06)
[2018-06-23] MEDS ORDERED: FENTANYL CITR 100 MCG/2 ML ONE (08:06)
[2018-06-23] MEDS ORDERED: NA CHLORIDE 0.9% 50 ML ONE (08:07)
[2018-06-23] MEDS ORDERED: PRASUGREL (EFFIENT) 10 MG TAB ONE (09:30)
[2018-06-23] MEDS ORDERED: ACETAMINOPHEN 325 MG TABLET ONE (10:47)
[2018-06-23] MEDS ORDERED: NITROGLYCERIN 0.4 MG/TAB SL PRN (11:00)
[2018-06-23] MEDS ORDERED: NA CHLORIDE 0.9% 1,000 ML IV SCH (11:00)
[2018-06-23 12:55] VITALS: O2SAT 98
[2018-06-23] MEDS: ACETAMINOPHEN 325 MG TABLET PO PRN (17:53)
--- NOTE | 2018-06-23 20:43 | OP ---
Surgeon: Joaquin Almazan MD Procedures Performed: Left heart catheterization, coronary angiography, stent of a proximal LAD lesi on, balloon angioplasty without stent in a mid LAD lesion. Procedure Findings: The patient has patent stents in her right coronary artery. There was diffuse c oronary disease throughout the entire coronary system, but no stenosis was more than 50% and the sten ts in the right coronary were patent. LAD had diffuse disease. The left main was rather short. Pro ximal LAD had a 70% lesion, mid LAD had 80% lesion. Because of tortuosity and calcification, we were not able to stent the distal artery, but after stenting the proximal it was 10% stenotic and the mid had a 10% stenosis after balloon angioplasty without a stent. Procedure In Detail: The patient gave informed consent, was brought to the Cardiac phlebotomist medical lab assistant in a fas ting state, sedated with Versed and fentanyl. The right radial approach artery was entered with a 21 -gauge needle after local anesthesia with 1% lidocaine. The artery was cannulated with a 0.021 inch guidewire. We placed a 6-Sinhala Terumo sheath, flushed it, gave a radial cocktail consisting of ayden rdipine, heparin, and nitroglycerin. We were able to angiogram all the coronary arteries, take press ures in the left ventricle. We decided not to inject the left ventricle because we knew what her eje ction fraction was from previous studies. After a decision was made to put a stent, we took the othe r catheter out over and exchanged the guidewire, placed the HD LAD 3.5 with side holes. Was able to engage the left main ostium well. The tortuosity of the vessel allowed us to cross the mid lesion wi th a balloon, but we could not put a stent anywhere close to that. The proximal lesion was stented. We used the Pop wire Emerge 2.75 x 15 balloon to pre-dilate and we stented the proximal part. W e were unable to pass any stent to the distal one, but the angiographic result was good with balloon angioplasty. We postdilated the proximal stent with a 3.0 x 15 noncompliant Emerge balloon inflated to 18 atmospheres. Following this, we took pictures, withdrew the catheter and removed the sheath an d closed the arteriotomy using a TR band. No complications from the procedure. During the procedure , the ACT was demonstrated to be more than 380 seconds. Complications From The Procedure: None. Estimated Blood Loss: 60 cc. Field Sales Specialist: Hue Kinney. CELESTINA/MARCIE Voice ID: [id number] Report ID: [id number]
[2018-06-23] MEDS ORDERED: ROSUVASTATIN 10 MG TAB PO SCH (21:00)
[2018-06-24 05:39] LABS: Hematocrit 37.3 % (36.0-45.0); MPV 10.8 fL (7.6-11.3); RBC Red Blood Cell Count 3.98 M/uL (3.86-4.86)
[2018-06-24] MEDS ORDERED: NATURE THYROID PO SCH (06:00)
[2018-06-24 06:02] LABS: Potassium 3.3 mmol/L (3.5-5.1)
[2018-06-24] MEDS ORDERED: PROBIOTIC PO SCH (09:00)
[2018-06-24] MEDS ORDERED: LACTOBACILLUS/ACIDOPHILUS TAB PO SCH (09:00)
[2018-06-24] MEDS ORDERED: CLOPIDOGREL 75 MG TABLET PO SCH (09:00)
[2018-06-24] MEDS ORDERED: JARDIANCE 25 MG PO SCH (09:00)
[2018-06-24] MEDS ORDERED: VITAMIN D 1000 UNIT TAB PO SCH (09:00)
[2018-06-24] MEDS ORDERED: CHLORTHALIDONE 25 MG TAB PO SCH (09:00)
[2018-06-24] MEDS ORDERED: BIOTIN 10000 MCG PO SCH (09:00)
[2018-06-24] MEDS ORDERED: VITAMIN B COMPLEX 1 CAP PO SCH (09:00)
[2018-06-24] MEDS ORDERED: FISH OIL 1200 MG PO SCH (09:00)
[2018-06-24] MEDS ORDERED: ASPIRIN EC 81 MG TAB PO SCH (09:00)
[2018-06-24] MEDS ORDERED: [UNRECOGNIZED DRUG - OTHER] SQ SCH (09:00)
[2018-06-24] MEDS ORDERED: IRON SUPPLEMENT PO SCH (09:00)
[2018-06-24] MEDS: ACETAMINOPHEN 325 MG TABLET PO PRN (09:33)
[2018-06-24 12:19] VITALS: BP 148/82; TEMP 98.6
[2018-06-24] MEDS ORDERED: CODEINE 30MG/APAP 300MG TAB PO ONE (12:33)
--- NOTE | 2018-06-24 13:42 | PN ---
Ms. Tsang feels well. No chest pain. Vital signs are good. Her laboratory exam does not suggest she h as any toxicity from the contrast material or bleeding, so she will be sent home today. Her medicati ons will be exactly the same except the dose of rosuvastatin, we will go up to 40 mg per day. She wi ll continue to take [place] Thyroid, losartan, clopidogrel, chlorthalidone, biotin, aspirin, Jardiance , Trulicity, and levofloxacin. CELESTINA/MARCIE Voice ID: [id number] Report ID: [id number]
[2018-06-30] MEDS ORDERED: TRULICITY SQ SCH (09:00)
== END 2018-06-24 14:40 | disposition home or self-care (01) ==
LOC: CCL 07:03 → 4TH 10:50 → CCL 06-24 14:40
PROVIDERS: ATTEND Internal Medicine
PROC: 4A023N7 Measurement of Cardiac Sampling and Pressure, Left Heart, Percutaneous Approach (ICD-10-PCS; principal; 2018-06-23)
PROC: B201YZZ Plain Radiography of Multiple Coronary Arteries using Other Contrast (ICD-10-PCS; 2018-06-23)
PROC: B205YZZ Plain Radiography of Left Heart using Other Contrast (ICD-10-PCS; 2018-06-23)
PROC: 027034Z Dilation of Coronary Artery, One Artery with Drug-eluting Intraluminal Device, Percutaneous Approach (ICD-10-PCS; 2018-06-23)
DX: I25.10 Atherosclerotic heart disease of native coronary artery without angina pectoris (principal); I10 Essential (primary) hypertension; E78.2 Mixed hyperlipidemia; E11.9 Type 2 diabetes mellitus without complications; E03.9 Hypothyroidism, unspecified; Z95.5 Presence of coronary angioplasty implant and graft; Z87.891 Personal history of nicotine dependence; Z88.6 Allergy status to analgesic agent; Z91.040 Latex allergy status; Z88.8 Allergy status to other drugs, medicaments and biological substances; Z91.048 Other nonmedicinal substance allergy status
CPT/HCPCS: 36415; 80048; 82962; 85025; 85027; 85610; 85730; 93458; C1893; J0282; J0583; J1644; J2250; J3010

== ENCOUNTER 2018-10-16 07:05 | Day surgery (SDC) | payer OTHER ==
[2018-10-12 12:08] LABS: Absolute Lymphocytes (CBC) 2.1 K/uL (0.7-4.9); Absolute Monocytes 0.4 K/uL (0.1-1.3); Absolute Neutrophil 3.7 K/uL (1.8-8.0); Basophils % 0.8 % (0-1.3); Hematocrit 39.9 % (36.0-45.0); Lymphocytes % 32.9 % (15.3-44.8); MPV 10.6 fL (7.6-11.3); Monocytes % 5.9 % (3.3-12.3); RBC Red Blood Cell Count 4.33 M/uL (3.86-4.86)
[2018-10-12 12:09] LABS: Potassium 3.7 mmol/L (3.5-5.1)
--- NOTE | 2018-10-12 12:11 | RAD REPORT ---
EXAM DESCRIPTION: RAD - Chest Pa And Lat (2 Views) - 10/12/2018 12:03 pm CLINICAL HISTORY: preop Chest pain. COMPARISON: Chest Single View dated 03/19/2018; CHEST PA AND LAT 2 VIEW dated 06/15/2012 FINDINGS: The lungs are clear. The heart is upper limit of normal in size. No displaced fractures. IMPRESSION: No acute or concerning finding suspected.
[2018-10-12 12:12] LABS: Protime INR 1.08
[2018-10-16] MEDS ORDERED: NA CHLORIDE 0.9% 500 ML ONE (07:41)
[2018-10-16] MEDS ORDERED: ATROPINE SULF 1 MG/10 ML SYR IV ONE (08:11)
[2018-10-16] MEDS ORDERED: FENTANYL CITR 100 MCG/2 ML ONE (08:11)
[2018-10-16] MEDS ORDERED: NA CHLORIDE 0.9% 0 ML ONE (08:11)
[2018-10-16] MEDS ORDERED: MIDAZOLAM HCL 2 MG/2 ML INJ ONE (08:11)
[2018-10-16 09:22] VITALS: TEMP 97.3
[2018-10-16 10:42] VITALS: O2SAT 99
[2018-10-16 12:09] VITALS: BP 111/48
--- NOTE | 2018-10-16 19:00 | OP ---
Surgeon: Joaquin Almazan MD Procedures: Left heart catheterization, coronary left ventricular angiography. Procedure Findings: The patient has 3 vessel coronary heart disease with total occlusion of an LAD a t the site of a previous stent, mildly depressed ejection fraction in the 40% range with anteroapical hypokinesis. Progression of CAD in the right coronary and circumflex compared to 3 months ago and t he recommendation is that she undergo bypass surgery. Procedure In Detail: The patient had an abnormal Cardiolite. No Q-waves on EKG. Symptoms suggestiv e of worsening CAD. She was brought to the cardiac chemistry lab instructor in a fasting state sedated with Versed, fentanyl, prepared and draped. Right femoral artery was entered using an 18-gauge needle, cannulated with a J-wire and a 4-Faroese sheath was placed, flushed. We used the sheaths to angiogram the femor al artery at the end of the procedure. At the end of the procedure we closed with Angio-Seal success fully. We used a JL4 to angiogram left coronary, 3DRC to angiogram the right and an angled pigtail t o angiogram the left ventricle. Estimated Blood Loss: 10 cc. Linux Devops Engineer: Alicia Moore. Complications: None. CELESTINA/MARCIE Voice ID: [id number] Report ID: [id number]
== END 2018-10-16 12:30 | disposition home or self-care (01) ==
LOC: CCL 07:05
PROVIDERS: ATTEND Internal Medicine
DX: I25.118 Atherosclerotic heart disease of native coronary artery with other forms of angina pectoris (principal); E11.9 Type 2 diabetes mellitus without complications; E78.2 Mixed hyperlipidemia; E03.9 Hypothyroidism, unspecified; I10 Essential (primary) hypertension; I48.0 Paroxysmal atrial fibrillation; Z79.82 Long term (current) use of aspirin; Z79.4 Long term (current) use of insulin; Z79.01 Long term (current) use of anticoagulants; Z79.02 Long term (current) use of antithrombotics/antiplatelets; Z79.899 Other long term (current) drug therapy; Z87.891 Personal history of nicotine dependence
CPT/HCPCS: 36415; 71046; 80048; 82962; 85025; 85610; 85730; 93458; C1760; C1893; J0583; J2250; J3010

== ENCOUNTER 2019-06-10 18:01 | Emergency (ER) | payer OTHER ==
--- OUTSIDE RECORDS SUMMARY | 2019-06-10 18:08 | XMS REPORT ---
:1955 [facility] [address] [place] [address] Care Team Providers Name Role Phone BING GREENBERG Unavailable Unavailable TARAN MCKEE Unavailable Unavailable Problems This patient has no known problems. Allergies, Adverse Reactions, Alerts This patient has no known allergies or adverse reactions. Medications This patient has no known medications. Results Test Description Test Time Test Comments Text Results Atomic Results Result Comments POCT-GLUCOSE METER 2019-03-28 07:15:00 Test Item Value Reference Range Comments POC-GLUCOSE METER (BEAKER) (test 87 mg/dL 70-[address] [facility] [address] [facility] cuhm=[id number]) [facility] [address] [id number] 06:51:00 Test Item Value Reference Range Comments MAGNESIUM (BEAKER) (test rman=424) 1.8 mg/dL 1.6-2.6 [id number] 06:51:00 Test Item Value Reference Range Comments BLOOD UREA NITROGEN (BEAKER) (test tvxg=887) 18 mg/dL 7-21 [id number] 06:51:00 Test Item Value Reference Range Comments SODIUM (BEAKER) (test apbo=908) 139 meq/L 136-145 POTASSIUM (BEAKER) (test hkww=412) 3.9 meq/L 3.5-5.1 CHLORIDE (BEAKER) (test thxz=430) 109 meq/L 98-107 CO2 (BEAKER) (test byob=055) 24 meq/L 22-29 CBC (HEMOGRAM ONLY)2019-03-28 06:36:00 Test Item Value Reference Range Comments WHITE BLOOD CELL COUNT (BEAKER) (test ztbf=772) 6.7 K/ L 3.5-10.5 RED BLOOD CELL COUNT (BEAKER) (test qzvo=501) 3.91 M/ L 3.93-5.22 HEMOGLOBIN (BEAKER) (test asqh=616) 11.8 GM/DL 11.2-15.7 HEMATOCRIT (BEAKER) (test tvpt=812) 36.5 % 34.1-44.9 MEAN CORPUSCULAR VOLUME (BEAKER) (test qrpw=392) 93.4 fL 79.4-94.8 MEAN CORPUSCULAR HEMOGLOBIN (BEAKER) (test 30.2 pg 25.6-32.2 wcss=923) MEAN CORPUSCULAR HEMOGLOBIN CONC (BEAKER) (test 32.3 GM/DL 32.2-35.5 fekz=949) RED CELL DISTRIBUTION WIDTH (BEAKER) (test 13.8 % 11.7-14.4 yliq=594) PLATELET COUNT (BEAKER) (test bzuw=222) 178 K/CU MM 150-450 MEAN PLATELET VOLUME (BEAKER) (test gruv=835) 12.3 fL 9.4-12.3 NUCLEATED RED BLOOD CELLS (BEAKER) (test 0 /100 WBC 0-0 afvc=882) POCT-GLUCOSE [id number] 22:47:00 Test Item Value Reference Range Comments POC-GLUCOSE METER (BEAKER) 119 mg/dL 70-110 TESTED AT [address] (test zkph=3315) [place] [address] POCT-GLUCOSE [id number] 16:47:00 Test Item Value Reference Range Comments POC-GLUCOSE METER (BEAKER) 113 mg/dL 70-110 TESTED AT [address] (test cvnk=8191) [place] [address] [id number] 10:26:00 Test Item Value Reference Range Comments ACTIVATED CLOTTING TIME 323 sec Reference Range: 74-137 (BEAKER) (test auuc=628) seconds, Baseline/TESTED AT [place] [address] [id number] 10:11:00 Test Item Value Reference Range Comments ACTIVATED CLOTTING TIME 274 sec Reference Range: 74-137 (BEAKER) (test nsvf=865) seconds, Baseline/TESTED AT [place] [address] [id number] 09:40:00 Test Item Value Reference Range Comments ACTIVATED CLOTTING TIME 296 sec Reference Range: 74-137 (BEAKER) (test ipfg=688) seconds, Baseline/TESTED AT [facility] [address] [facility] [address] [id number] 09:14:00 Test Item Value Reference Range Comments ACTIVATED CLOTTING TIME 318 sec Reference Range: 74-137 (BEAKER) (test rzlt=873) seconds, Baseline/TESTED AT [facility] [address] [facility] [address] [id number] 07:08:00 Test Item Value Reference Range Comments MAGNESIUM (BEAKER) (test qabs=050) 2.0 mg/dL 1.6-2.6 BASIC METABOLIC [id number] 07:08:00 Test Item Value Reference Range Comments SODIUM (BEAKER) (test 139 meq/L 136-145 dijm=609) POTASSIUM (BEAKER) (test 4.2 meq/L 3.5-5.1 hcmk=609) CHLORIDE (BEAKER) (test 105 meq/L 98-107 xcwa=411) CO2 (BEAKER) (test 28 meq/L 22-29 mqgz=439) BLOOD UREA NITROGEN 25 mg/dL 7-21 (BEAKER) (test yvhy=453) CREATININE (BEAKER) (test 1.34 mg/dL 0.57-1.25 seri=570) GLUCOSE RANDOM (BEAKER) 133 mg/dL 70-105 (test wrck=317) CALCIUM (BEAKER) (test 10.2 mg/dL 8.4-10.2 fmhp=861) EGFR (BEAKER) (test 40 mL/min/1.73 sq m ESTIMATED GFR IS NOT xiaj=3322) ACCURATE CREATININE CLEARANCE IN PREDICTING GLOMERULAR FILTRATION RATE. ESTIMATED GFR IS NOT APPLICABLE FOR DIALYSIS PATIENTS. CBC W/PLT COUNT & AUTO [id number] 06:43:00 Test Item Value Reference Range Comments WHITE BLOOD CELL COUNT (BEAKER) (test mfim=285) 6.5 K/ L 3.5-10.5 RED BLOOD CELL COUNT (BEAKER) (test nkpa=507) 4.46 M/ L 3.93-5.22 HEMOGLOBIN (BEAKER) (test hlbk=777) 13.2 GM/DL 11.2-15.7 HEMATOCRIT (BEAKER) (test cqmk=177) 41.6 % 34.1-44.9 MEAN CORPUSCULAR VOLUME (BEAKER) (test qvvu=233) 93.3 fL 79.4-94.8 MEAN CORPUSCULAR HEMOGLOBIN (BEAKER) (test 29.6 pg 25.6-32.2 uwds=241) MEAN CORPUSCULAR HEMOGLOBIN CONC (BEAKER) (test 31.7 GM/DL 32.2-35.5 ereu=534) RED CELL DISTRIBUTION WIDTH (BEAKER) (test 13.6 % 11.7-14.4 rcsr=005) PLATELET COUNT (BEAKER) (test oeom=474) 207 K/CU MM 150-450 MEAN PLATELET VOLUME (BEAKER) (test sdee=502) 11.8 fL 9.4-12.3 NUCLEATED RED BLOOD CELLS (BEAKER) (test 0 /100 WBC 0-0 gcsj=676) NEUTROPHILS RELATIVE PERCENT (BEAKER) (test 57 % iqgx=891) LYMPHOCYTES RELATIVE PERCENT (BEAKER) (test 30 % obho=259) MONOCYTES RELATIVE PERCENT (BEAKER) (test 8 % hwjw=522) EOSINOPHILS RELATIVE PERCENT (BEAKER) (test 3 % wovn=241) BASOPHILS RELATIVE PERCENT (BEAKER) (test 1 % pkyo=027) NEUTROPHILS ABSOLUTE COUNT (BEAKER) (test 3.70 K/ L 1.56-6.13 mrql=867) LYMPHOCYTES ABSOLUTE COUNT (BEAKER) (test 1.95 K/ L 1.18-3.74 ppjg=305) MONOCYTES ABSOLUTE COUNT (BEAKER) (test 0.52 K/ L 0.24-0.36 rioo=599) EOSINOPHILS ABSOLUTE COUNT (BEAKER) (test 0.21 K/ L 0.04-0.36 dcsy=535) BASOPHILS ABSOLUTE COUNT (BEAKER) (test 0.06 K/ L 0.01-0.08 grht=216) IMMATURE GRANULOCYTES-RELATIVE PERCENT (BEAKER) 0 % 0-1 (test kdjw=7405) CT, HEART, [id number] 17:33:00Reason for Exam:->AFIBAddendum BeginsREPORT STATUS:A I have reviewed the study for nonvascular component. I agree with the nonvascular findings as described above. If there is a clinical concern aboutthe splenic hypodense area, a dedicated abdominal CT should be performed. Signed: Mazin Watson MDReport Verified Date/Time: 09/30/ 2019 17:33:03 Reading Location: [facility] Radiology Reading RoomAddendum EndsFINAL REPORT CT angiography of the pulmonary veins, 22 March 2019 INDICATION: This is a 64 years old female with history of atrial fibrillation presented here for pulmonary vein ostial mapping. This study is performed in an attempt to avoid invasive procedure. TECHNIQUE: Spiral acquisition during intravenous contrast administration using a Siemens multislice cardiac CT scanner without prospective ECG triggering. Multiplanar reconstructions were performed interactively by the interpreting physician using an independent ([employer]) workstation. Please refer to the contrast sheet scanned in the EPIC system for the amount and route of contrast given. This exam was performed according to our departmental dose-optimisation programme, which includes automated exposure control, adjustment of the mA and/or kV according to patient size and/or use of iterative reconstruction technique. Dose modulation, iterative reconstruction, and/or weight based adjustment of the mA/kV was utilized to reduce the radiation dose to as low as reasonably achievable. FINDINGS: VASCULAR: Nopericardial effusion is identified. The central pulmonary artery is at the upper limits of normal insize. The thoracic aorta is normal in course, calibre, and contour. There is calcification seen in the descending thoracic aorta. There is no evidence for acute aortic pathology. Arch vessel branchingpattern is normal; calcification, moderate in nature is seen at the takeoff of the left subclavian artery. The cardiac chambers demonstrate normal atrioventricular and ventriculoarterial concordance, and systemic and pulmonary venous return. The left ventricle is normal in size. The coronary artery origins are normal. Patient is post coronary artery bypass surgery. The left internal mammary artery isidentified, connecting to the LAD. There is a bypass graft to the RCA territory, and there is also abypass graft to the LCx territory. These bypass grafts are patent. Left atrial enlargement is identified. The left atrial appendage is well seen in the first dynamic data set and no thrombus is appreciated. Pulmonary vein morphology is normal with pairs of pulmonary veins on each side of the left atrium. There is no evidence for pulmonary vein stenosis. Quantitative pulmonary vein ostial mapping ( measured utilizing MPR analysis) is as follows: Pulmonary vein Major axis Minor axis Cross-sectional area Right upper22 mm 19 mm 3.2 rf6Suyhx lower 18 mm 17 mm 2.4 pf5Bqvm upper 20 mm 16 mm 2.4 sf3Tdrh lower 17 mm 12 mm 1.4 cm2 NON-VASCULAR: The visualised thyroid gland is unremarkable. The chest wall and mediastinum appears normal. Patient is post median sternotomy. Some small lymph is seen, consider nonspecific in nature. In the lung windows, no endobronchial lesion is seen, and no pleural effusion is identified. Calcified nodule is identified in the right lung at image 59 indicating prior granulomatous disease. Overall, no suspicious pulmonary nodule is identified. The limited images of the upper abdomen reveal no significant abnormalities of the visualized organs. A small hiatus hernia is identified. Calcified granuloma is identified in the spleen. Hypodensity is identified in the anterior aspect of the spleen for example image 49, of uncertain significance. In the bony windows, no acute bony pathology is identified. Some degenerative changes is noted. IMPRESSIONS: 1. The left atrium is enlarged. The left atrial appendage is well seen and no thrombus is identified. Patient is post coronary artery bypass surgery and 3 patent bypass graft is seen as described above. 2. Pulmonary vein morphology is normal with pairs of pulmonary veins bilaterally. There is no evidence for pulmonary vein stenosis. Quantitative pulmonary vein ostial mapping is as noted above. 3. Normal thoracic aorta. Scattered calcification is seen in the descending thoracicaorta. 4. No acute pulmonary pathology. Evidence of prior granulomatous disease. No suspicious pulmonary nodule is identified. 5. Other findings as described above. 6. An addendum will be dictated regarding the non- vascular findings by the Stock Worker Radiologist. Signed: Nik Morris MDReport Verified Date/Time: 03/22/2019 15:53:16 POCT-GLUCOSE [id number] 15: 44:00 Test Item Value Reference Range Comments POC-GLUCOSE METER (BEAKER) 103 mg/dL 70-[address] [facility] [address] [facility] (test kzpg=5949) [facility] [address] BASIC METABOLIC [id number] 12:42:00 Test Item Value Reference Range Comments SODIUM (BEAKER) (test 140 meq/L 136-145 tyrq=828) POTASSIUM (BEAKER) (test 4.5 meq/L 3.5-5.1 icyy=568) CHLORIDE (BEAKER) (test 109 meq/L 98-107 nzrm=665) CO2 (BEAKER) (test 21 meq/L 22-29 gwsa=789) BLOOD UREA NITROGEN 34 mg/dL 7-21 (BEAKER) (test oaoc=155) CREATININE (BEAKER) (test 1.31 mg/dL 0.57-1.25 ydhe=422) GLUCOSE RANDOM (BEAKER) 122 mg/dL 70-105 (test xhid=630) CALCIUM (BEAKER) (test 10.3 mg/dL 8.4-10.2 ozvg=958) EGFR (BEAKER) (test 41 mL/min/1.73 sq m ESTIMATED GFR IS NOT wnbm=2632) ACCURATE CREATININE CLEARANCE IN PREDICTING GLOMERULAR FILTRATION RATE. ESTIMATED GFR IS NOT APPLICABLE FOR DIALYSIS PATIENTS. CBC (HEMOGRAM ONLY)2019-03-22 12:34:00 Test Item Value Reference Range Comments WHITE BLOOD CELL COUNT (BEAKER) (test lbgd=777) 6.8 K/ L 3.5-10.5 RED BLOOD CELL COUNT (BEAKER) (test dzjt=181) 4.71 M/ L 3.93-5.22 HEMOGLOBIN (BEAKER) (test oyfi=597) 13.9 GM/DL 11.2-15.7 HEMATOCRIT (BEAKER) (test srdd=815) 43.0 % 34.1-44.9 MEAN CORPUSCULAR VOLUME (BEAKER) (test pgti=644) 91.3 fL 79.4-94.8 MEAN CORPUSCULAR HEMOGLOBIN (BEAKER) (test 29.5 pg 25.6-32.2 fdcd=595) MEAN CORPUSCULAR HEMOGLOBIN CONC (BEAKER) (test 32.3 GM/DL 32.2-35.5 jbnm=284) RED CELL DISTRIBUTION WIDTH (BEAKER) (test 13.6 % 11.7-14.4 fern=344) PLATELET COUNT (BEAKER) (test csye=857) 246 K/CU MM 150-450 MEAN PLATELET VOLUME (BEAKER) (test gbvd=711) 11.5 fL 9.4-12.3 NUCLEATED RED BLOOD CELLS (BEAKER) (test 0 /100 WBC 0-0 pfkt=493) POCT-GLUCOSE [id number] 12:55:00 Test Item Value Reference Range Comments POC-GLUCOSE METER (BEAKER) 188 mg/dL 70-110 TESTED AT [address] (test cerb=5738) [place] [address] POCT-GLUCOSE [id number] 08:44:00 Test Item Value Reference Range Comments POC-GLUCOSE METER (BEAKER) 144 mg/dL 70-110 TESTED AT [address] (test rype=8878) [place] [address] [id number] 04:43:00 Test Item Value Reference Range Comments MAGNESIUM (BEAKER) (test ppno=915) 1.6 mg/dL 1.6-2.6 BASIC METABOLIC [id number] 04:43:00 Test Item Value Reference Range Comments SODIUM (BEAKER) (test 140 meq/L 136-145 kzqd=331) POTASSIUM (BEAKER) (test 4.0 meq/L 3.5-5.1 leta=391) CHLORIDE (BEAKER) (test 101 meq/L 98-107 twdz=056) CO2 (BEAKER) (test 28 meq/L 22-29 vgur=993) BLOOD UREA NITROGEN 16 mg/dL 7-21 (BEAKER) (test tjxf=740) CREATININE (BEAKER) (test 0.87 mg/dL 0.57-1.25 ajir=023) GLUCOSE RANDOM (BEAKER) 149 mg/dL 70-105 (test fsju=377) CALCIUM (BEAKER) (test 9.8 mg/dL 8.4-10.2 doji=456) EGFR (BEAKER) (test 66 mL/min/1.73 sq m ESTIMATED GFR IS NOT edxt=4666) ACCURATE CREATININE CLEARANCE IN PREDICTING GLOMERULAR FILTRATION RATE. ESTIMATED GFR IS NOT APPLICABLE FOR DIALYSIS PATIENTS. CBC (HEMOGRAM ONLY)2018-10-25 04:20:00 Test Item Value Reference Range Comments WHITE BLOOD CELL COUNT (BEAKER) (test npli=508) 9.0 K/ L 3.5-10.5 RED BLOOD CELL COUNT (BEAKER) (test sdio=413) 2.99 M/ L 3.93-5.22 HEMOGLOBIN (BEAKER) (test dumx=488) 9.3 GM/DL 11.2-15.7 HEMATOCRIT (BEAKER) (test elmh=400) 28.7 % 34.1-44.9 MEAN CORPUSCULAR VOLUME (BEAKER) (test lujw=240) 96.0 fL 79.4-94.8 MEAN CORPUSCULAR HEMOGLOBIN (BEAKER) (test 31.1 pg 25.6-32.2 lnfm=588) MEAN CORPUSCULAR HEMOGLOBIN CONC (BEAKER) (test 32.4 GM/DL 32.2-35.5 emps=748) RED CELL DISTRIBUTION WIDTH (BEAKER) (test 14.8 % 11.7-14.4 ektf=443) PLATELET COUNT (BEAKER) (test cyhy=817) 350 K/CU MM 150-450 MEAN PLATELET VOLUME (BEAKER) (test ktec=724) 10.6 fL 9.4-12.3 NUCLEATED RED BLOOD CELLS (BEAKER) (test 0 /100 WBC 0-0 rvow=405) POCT-GLUCOSE [id number] 22:48:00 Test Item Value Reference Range Comments POC-GLUCOSE METER (BEAKER) 204 mg/dL 70-110 TESTED AT [address] (test azmc=8124) [place] [address] POCT-GLUCOSE [id number] 18:43:00 Test Item Value Reference Range Comments POC-GLUCOSE METER (BEAKER) 125 mg/dL 70-110 TESTED AT [address] (test odyl=9465) [place] [address] POCT-GLUCOSE [id number] 12:29:00 Test Item Value Reference Range Comments POC-GLUCOSE METER (BEAKER) 169 mg/dL 70-110 TESTED AT [address] (test sgmc=5971) [place] [address] POCT-GLUCOSE [id number] 08:15:00 Test Item Value Reference Range Comments POC-GLUCOSE METER (BEAKER) 139 mg/dL 70-110 TESTED AT [address] (test ddno=2728) [place] [address] [id number] 05:50:00 Test Item Value Reference Range Comments MAGNESIUM (BEAKER) (test arwo=409) 1.5 mg/dL 1.6-2.6 BASIC METABOLIC [id number] 05:50:00 Test Item Value Reference Range Comments SODIUM (BEAKER) (test 139 meq/L 136-145 oduo=382) POTASSIUM (BEAKER) (test 3.7 meq/L 3.5-5.1 xowj=348) CHLORIDE (BEAKER) (test 105 meq/L 98-107 hniw=316) CO2 (BEAKER) (test 27 meq/L 22-29 ecpa=810) BLOOD UREA NITROGEN 14 mg/dL 7-21 (BEAKER) (test zigz=261) CREATININE (BEAKER) (test 0.75 mg/dL 0.57-1.25 mbro=569) GLUCOSE RANDOM (BEAKER) 127 mg/dL 70-105 (test uhhf=616) CALCIUM (BEAKER) (test 9.3 mg/dL 8.4-10.2 gjkk=822) EGFR (BEAKER) (test 78 mL/min/1.73 sq m ESTIMATED GFR IS NOT bded=3803) ACCURATE CREATININE CLEARANCE IN PREDICTING GLOMERULAR FILTRATION RATE. ESTIMATED GFR IS NOT APPLICABLE FOR DIALYSIS PATIENTS. CBC (HEMOGRAM ONLY)2018-10-24 05:08:00 Test Item Value Reference Range Comments WHITE BLOOD CELL COUNT (BEAKER) (test xaat=467) 7.7 K/ L 3.5-10.5 RED BLOOD CELL COUNT (BEAKER) (test tdlf=857) 2.89 M/ L 3.93-5.22 HEMOGLOBIN (BEAKER) (test fojm=220) 9.0 GM/DL 11.2-15.7 HEMATOCRIT (BEAKER) (test jucv=374) 27.5 % 34.1-44.9 MEAN CORPUSCULAR VOLUME (BEAKER) (test bmjp=408) 95.2 fL 79.4-94.8 MEAN CORPUSCULAR HEMOGLOBIN (BEAKER) (test 31.1 pg 25.6-32.2 qrbh=115) MEAN CORPUSCULAR HEMOGLOBIN CONC (BEAKER) (test 32.7 GM/DL 32.2-35.5 mmsq=315) RED CELL DISTRIBUTION WIDTH (BEAKER) (test 14.6 % 11.7-14.4 kkbu=428) PLATELET COUNT (BEAKER) (test oxvy=475) 284 K/CU MM 150-450 MEAN PLATELET VOLUME (BEAKER) (test sflq=760) 10.5 fL 9.4-12.3 NUCLEATED RED BLOOD CELLS (BEAKER) (test 0 /100 WBC 0-0 ogiq=598) POCT-GLUCOSE [id number] 21:28:00 Test Item Value Reference Range Comments POC-GLUCOSE METER (BEAKER) 84 mg/dL 70-110 TESTED AT [address] (test bqzn=0984) [place] [address] POCT-GLUCOSE [id number] 18:25:00 Test Item Value Reference Range Comments POC-GLUCOSE METER (BEAKER) 179 mg/dL 70-110 TESTED AT [address] (test pucj=7963) [place] [address] POCT-GLUCOSE [id number] 13:16:00 Test Item Value Reference Range Comments POC-GLUCOSE METER (BEAKER) 144 mg/dL 70-110 TESTED AT [address] (test qaqp=9389) [place] [address] [id number] 12:24:00 Test Item Value Reference Range Comments MAGNESIUM (BEAKER) (test aqbg=972) 1.2 mg/dL 1.6-2.6 TISSUE [id number] 10:59:00Surgical Pathology Report Case: [id number] Authorizing Provider: Kal Ireland, Collected: 10/17/2018 1313 OrderingLocation: [facility] Received: 2018 1506 PERIOPERATIVE SERVICES Pathologist: Santy Stephen MD Specimen: Lymph Node, anterior mediastinal lymph node ANTERIOR MEDIASTINUMMASS, EXCISION:TYPE B1 THYMOMA. Signing Pathologist Direct Phone Line: Immunostain for keratin performed on block A2 demonstrates characteristic keratin positive networks, supporting the above impression.This case was reviewed with Dr. Adrian Mckinnon, who concurs with the above interpretation.[id number], [id number] artery diseaseAnterior mediastinumThe specimen is received labeled "lymph node" and consists of a 3.5 x 2.0 x 1.5 cm reynolds-yellow to reynolds-white fatty lymph node. The lymph node is trisected to reveal a reynolds glistening lobulated cut surface. The specimen is submitted entirely in cassettes A1 to A3. AH/plPerformed. The interpretation of this case included the use of immunohistochemistry or special stains.BLOCK A2- KERATINImmunohistochemistry technical testing was performed at [facility], Pathology Laboratory where it was developed and its performance characteristics were determined. It has not been cleared or approved by the U.S. Food and Drug Administration. The FDA has determined that such clearance or approval is not necessary. The test is used for clinical purposes. It should not be regarded as investigational or for research. This laboratory is certified under the Clinical Laboratory Improvement Amendments of 1988 (CLIA-88) as qualified to perform high complexity clinical laboratory testing.[facility], Department of Pathology, [address] [place] [address], [facility], [address] [place] [address], Tel [employer] [id number] 05:14:00 Test Item Value Reference Range Comments SODIUM (BEAKER) (test 140 meq/L 136-145 pxtt=203) POTASSIUM (BEAKER) (test 3.5 meq/L 3.5-5.1 dkar=398) CHLORIDE (BEAKER) (test 104 meq/L 98-107 xzhr=801) CO2 (BEAKER) (test 28 meq/L 22-29 axrs=451) BLOOD UREA NITROGEN 11 mg/dL 7-21 (BEAKER) (test fsbl=158) CREATININE (BEAKER) (test 0.73 mg/dL 0.57-1.25 ysoi=507) GLUCOSE RANDOM (BEAKER) 135 mg/dL 70-105 (test skzz=024) CALCIUM (BEAKER) (test 9.2 mg/dL 8.4-10.2 tnby=367) EGFR (BEAKER) (test 81 mL/min/1.73 sq m ESTIMATED GFR IS NOT ykpo=6352) ACCURATE CREATININE CLEARANCE IN PREDICTING GLOMERULAR FILTRATION RATE. ESTIMATED GFR IS NOT APPLICABLE FOR DIALYSIS PATIENTS. CBC (HEMOGRAM ONLY)2018-10-23 04:43:00 Test Item Value Reference Range Comments WHITE BLOOD CELL COUNT (BEAKER) (test dglj=880) 7.0 K/ L 3.5-10.5 RED BLOOD CELL COUNT (BEAKER) (test yiic=989) 2.63 M/ L 3.93-5.22 HEMOGLOBIN (BEAKER) (test gmjd=176) 8.3 GM/DL 11.2-15.7 HEMATOCRIT (BEAKER) (test rrlh=012) 25.0 % 34.1-44.9 MEAN CORPUSCULAR VOLUME (BEAKER) (test ipfw=039) 95.1 fL 79.4-94.8 MEAN CORPUSCULAR HEMOGLOBIN (BEAKER) (test 31.6 pg 25.6-32.2 pdqg=330) MEAN CORPUSCULAR HEMOGLOBIN CONC (BEAKER) (test 33.2 GM/DL 32.2-35.5 prpi=500) RED CELL DISTRIBUTION WIDTH (BEAKER) (test 13.9 % 11.7-14.4 fchq=318) PLATELET COUNT (BEAKER) (test aoha=833) 232 K/CU MM 150-450 MEAN PLATELET VOLUME (BEAKER) (test kred=573) 10.8 fL 9.4-12.3 NUCLEATED RED BLOOD CELLS (BEAKER) (test 0 /100 WBC 0-0 vpxx=091) POCT-GLUCOSE [id number] 21:37:00 Test Item Value Reference Range Comments POC-GLUCOSE METER (BEAKER) 181 mg/dL 70-110 TESTED AT [address] (test otap=0369) [place] [id number] POCT-GLUCOSE [id number] 17:56:00 Test Item Value Reference Range Comments POC-GLUCOSE METER (BEAKER) 172 mg/dL 70-110 TESTED AT [address] (test mkyq=1250) [place] [id number] POCT-GLUCOSE [id number] 12:24:00 Test Item Value Reference Range Comments POC-GLUCOSE METER (BEAKER) 191 mg/dL 70-110 TESTED AT [address] (test worq=5830) [place] [id number] POCT-GLUCOSE [id number] 07:17:00 Test Item Value Reference Range Comments POC-GLUCOSE METER (BEAKER) 147 mg/dL 70-110 TESTED AT [address] (test oqxr=3046) [facility] [address] BASIC METABOLIC [id number] 05:09:00 Test Item Value Reference Range Comments SODIUM (BEAKER) (test 136 meq/L 136-145 upgy=071) POTASSIUM (BEAKER) (test 3.3 meq/L 3.5-5.1 snbn=994) CHLORIDE (BEAKER) (test 101 meq/L 98-107 gnsc=212) CO2 (BEAKER) (test 27 meq/L 22-29 emux=422) BLOOD UREA NITROGEN 10 mg/dL 7-21 (BEAKER) (test vubn=405) CREATININE (BEAKER) (test 0.73 mg/dL 0.57-1.25 bjbp=695) GLUCOSE RANDOM (BEAKER) 137 mg/dL 70-105 (test tnrj=717) CALCIUM (BEAKER) (test 8.9 mg/dL 8.4-10.2 ogyh=934) EGFR (BEAKER) (test 81 mL/min/1.73 sq m ESTIMATED GFR IS NOT shde=0450) ACCURATE CREATININE CLEARANCE IN PREDICTING GLOMERULAR FILTRATION RATE. ESTIMATED GFR IS NOT APPLICABLE FOR DIALYSIS PATIENTS. CBC (HEMOGRAM ONLY)2018-10-22 04:47:00 Test Item Value Reference Range Comments WHITE BLOOD CELL COUNT (BEAKER) (test ywhh=950) 7.5 K/ L 3.5-10.5 RED BLOOD CELL COUNT (BEAKER) (test zizc=858) 2.71 M/ L 3.93-5.22 HEMOGLOBIN (BEAKER) (test yxxy=286) 8.4 GM/DL 11.2-15.7 HEMATOCRIT (BEAKER) (test ufsj=973) 25.4 % 34.1-44.9 MEAN CORPUSCULAR VOLUME (BEAKER) (test qjlw=027) 93.7 fL 79.4-94.8 MEAN CORPUSCULAR HEMOGLOBIN (BEAKER) (test 31.0 pg 25.6-32.2 khkr=384) MEAN CORPUSCULAR HEMOGLOBIN CONC (BEAKER) (test 33.1 GM/DL 32.2-35.5 krto=546) RED CELL DISTRIBUTION WIDTH (BEAKER) (test 14.0 % 11.7-14.4 gyho=307) PLATELET COUNT (BEAKER) (test mhgi=214) 208 K/CU MM 150-450 MEAN PLATELET VOLUME (BEAKER) (test expm=058) 11.3 fL 9.4-12.3 NUCLEATED RED BLOOD CELLS (BEAKER) (test 0 /100 WBC 0-0 dxga=316) POCT-GLUCOSE [id number] 21:24:00 Test Item Value Reference Range Comments POC-GLUCOSE METER (BEAKER) 222 mg/dL 70-110 TESTED AT [address] (test pxbd=9133) [facility] [id number] POCT-GLUCOSE [id number] 18:13:00 Test Item Value Reference Range Comments POC-GLUCOSE METER (BEAKER) 150 mg/dL 70-110 TESTED AT [address] (test pmmz=5233) [place] [id number] POCT-GLUCOSE [id number] 12:51:00 Test Item Value Reference Range Comments POC-GLUCOSE METER (BEAKER) 145 mg/dL 70-110 TESTED AT [address] (test hwoc=6838) [place] [id number] POCT-GLUCOSE [id number] 08:40:00 Test Item Value Reference Range Comments POC-GLUCOSE METER (BEAKER) 165 mg/dL 70-110 TESTED AT [address] (test wqxt=7494) [place] [id number] BASIC METABOLIC [id number] 06:50:00 Test Item Value Reference Range Comments SODIUM (BEAKER) (test 137 meq/L 136-145 qxmq=277) POTASSIUM (BEAKER) (test 3.3 meq/L 3.5-5.1 vprb=003) CHLORIDE (BEAKER) (test 102 meq/L 98-107 kwxc=830) CO2 (BEAKER) (test 30 meq/L 22-29 zkln=624) BLOOD UREA NITROGEN 14 mg/dL 7-21 (BEAKER) (test chwm=421) CREATININE (BEAKER) (test 0.74 mg/dL 0.57-1.25 uisp=112) GLUCOSE RANDOM (BEAKER) 159 mg/dL 70-105 (test yvbw=469) CALCIUM (BEAKER) (test 8.7 mg/dL 8.4-10.2 yysd=629) EGFR (BEAKER) (test 80 mL/min/1.73 sq m ESTIMATED GFR IS NOT degb=2811) ACCURATE CREATININE CLEARANCE IN PREDICTING GLOMERULAR FILTRATION RATE. ESTIMATED GFR IS NOT APPLICABLE FOR DIALYSIS PATIENTS. CBC (HEMOGRAM ONLY)2018-10-21 05:51:00 Test Item Value Reference Range Comments WHITE BLOOD CELL COUNT (BEAKER) (test kmgi=144) 8.0 K/ L 3.5-10.5 RED BLOOD CELL COUNT (BEAKER) (test cbsk=890) 2.83 M/ L 3.93-5.22 HEMOGLOBIN (BEAKER) (test qzwu=547) 8.6 GM/DL 11.2-15.7 HEMATOCRIT (BEAKER) (test ojwp=807) 25.4 % 34.1-44.9 MEAN CORPUSCULAR VOLUME (BEAKER) (test nmun=025) 89.8 fL 79.4-94.8 MEAN CORPUSCULAR HEMOGLOBIN (BEAKER) (test 30.4 pg 25.6-32.2 fkod=751) MEAN CORPUSCULAR HEMOGLOBIN CONC (BEAKER) (test 33.9 GM/DL 32.2-35.5 eboi=274) RED CELL DISTRIBUTION WIDTH (BEAKER) (test 14.0 % 11.7-14.4 erlh=857) PLATELET COUNT (BEAKER) (test qvyv=654) 180 K/CU MM 150-450 MEAN PLATELET VOLUME (BEAKER) (test xcbn=999) 11.2 fL 9.4-12.3 NUCLEATED RED BLOOD CELLS (BEAKER) (test 0 /100 WBC 0-0 beth=875) POCT-GLUCOSE [id number] 22:14:00 Test Item Value Reference Range Comments POC-GLUCOSE METER (BEAKER) 205 mg/dL 70-110 TESTED AT [address] (test sbhp=3250) [place] [id number] POCT-GLUCOSE [id number] 17:53:00 Test Item Value Reference Range Comments POC-GLUCOSE METER (BEAKER) 159 mg/dL 70-110 TESTED AT [address] (test ceix=0628) [place] [id number] POCT-GLUCOSE [id number] 14:30:00 Test Item Value Reference Range Comments POC-GLUCOSE METER (BEAKER) 155 mg/dL 70-110 TESTED AT [address] (test gpha=6204) [place] [id number] POCT-GLUCOSE [id number] 12:37:00 Test Item Value Reference Range Comments POC-GLUCOSE METER (BEAKER) 190 mg/dL 70-110 TESTED AT [address] (test vpjj=7377) [place] [id number] POCT-GLUCOSE [id number] 09:04:00 Test Item Value Reference Range Comments POC-GLUCOSE METER (BEAKER) 144 mg/dL 70-[address] [facility] [address] (test gqkw=1529) [facility] [address] RAD, CHEST, 1 VIEW, NON [id number] 06:41:00while patient is intubated or has chest tubes.Reason for exam:->Status post CV SurgeryShould thisbe performed at the bedside?->YesFINAL REPORT RAD, CHEST , 1 VIEW, NON DEPT INDICATION: Status post CV Surgery COMPARISON: Prior day's exam FINDINGS: Portable frontal view of the chest. IMPRESSION: Support Lines : Right IJ catheter tip overlies the SVC. Sternotomy wires are unchanged. Lungs and pleura: Lungs are predominantly clear. Left retrocardiac opacity is unchanged. No pneumothorax.Heart and mediastinum: Stable contours. Stable surgical changes.Additional findings: None. Signed: Dayami Cummins MDReport Verified Date/Time: 10/20/2018 06:41:59 Reading Location: [address] Neuro Reading Room Electronically signed by: DAYAMI CUMMINS MD on 2018 06:41 AMCALCIUM, [id number] 06:11:00 Test Item Value Reference Range Comments CALCIUM IONIZED (BEAKER) (test hlmx=679) 1.15 mmol/L 1.12-1.27 PH, BLOOD (BEAKER) (test pctu=5096) 7.37 BASIC METABOLIC [id number] 05:14:00 Test Item Value Reference Range Comments SODIUM (BEAKER) (test 131 meq/L 136-145 cgtl=693) POTASSIUM (BEAKER) (test 4.0 meq/L 3.5-5.1 Specimen slightly mvwg=875) hemolyzed CHLORIDE (BEAKER) (test 101 meq/L 98-107 luig=395) CO2 (BEAKER) (test 25 meq/L 22-29 urax=150) BLOOD UREA NITROGEN 17 mg/dL 7-21 (BEAKER) (test lskz=034) CREATININE (BEAKER) (test 0.74 mg/dL 0.57-1.25 Specimen slightly zqfz=774) hemolyzed GLUCOSE RANDOM (BEAKER) 144 mg/dL 70-105 (test viou=824) CALCIUM (BEAKER) (test 8.5 mg/dL 8.4-10.2 qitc=816) EGFR (BEAKER) (test 80 mL/min/1.73 sq m ESTIMATED GFR IS NOT oeuv=7349) ACCURATE CREATININE CLEARANCE IN PREDICTING GLOMERULAR FILTRATION RATE. ESTIMATED GFR IS NOT APPLICABLE FOR DIALYSIS PATIENTS. CBC (HEMOGRAM ONLY)2018-10-20 04:44:00 Test Item Value Reference Range Comments WHITE BLOOD CELL COUNT (BEAKER) (test vqvs=546) 9.2 K/ L 3.5-10.5 RED BLOOD CELL COUNT (BEAKER) (test psqk=851) 2.70 M/ L 3.93-5.22 HEMOGLOBIN (BEAKER) (test qdvt=214) 8.2 GM/DL 11.2-15.7 HEMATOCRIT (BEAKER) (test smza=166) 24.7 % 34.1-44.9 MEAN CORPUSCULAR VOLUME (BEAKER) (test vacm=741) 91.5 fL 79.4-94.8 MEAN CORPUSCULAR HEMOGLOBIN (BEAKER) (test 30.4 pg 25.6-32.2 xyop=293) MEAN CORPUSCULAR HEMOGLOBIN CONC (BEAKER) (test 33.2 GM/DL 32.2-35.5 cswo=200) RED CELL DISTRIBUTION WIDTH (BEAKER) (test 14.7 % 11.7-14.4 wkfq=400) PLATELET COUNT (BEAKER) (test kgrn=796) 152 K/CU MM 150-450 MEAN PLATELET VOLUME (BEAKER) (test biol=185) 11.5 fL 9.4-12.3 NUCLEATED RED BLOOD CELLS (BEAKER) (test 0 /100 WBC 0-0 rsej=571) POCT-GLUCOSE [id number] 21:49:00 Test Item Value Reference Range Comments POC-GLUCOSE METER (BEAKER) 180 mg/dL 70-[address] [facility] [address] [facility] (test tiey=9787) [facility] [address] [id number] 18:27:00 Test Item Value Reference Range Comments POTASSIUM (BEAKER) (test ncmi=587) 3.9 meq/L 3.5-5.1 Check Serum Potassium level 2 hours after oral potassium replacement completed or 30 min after intravenous potassium replacement.[id number] 18:27:00 Test Item Value Reference Range Comments MAGNESIUM (BEAKER) (test ocbd=534) 2.2 mg/dL 1.6-2.6 Check Serum Magnesium level 2 hours after IV magnesium replacement.POCT-GLUCOSE [id number] 17:55:00 Test Item Value Reference Range Comments POC-GLUCOSE METER (BEAKER) 171 mg/dL 70-110 TESTED AT [address] (test nzch=8481) [place] [address] [id number] 16:15:00 Test Item Value Reference Range Comments POTASSIUM (BEAKER) (test pmiw=758) 3.7 meq/L 3.5-5.1 Check Serum Potassium level 2 hours after oral potassium replacement completed or 30 min after intravenous potassium replacement.[id number] 16:15:00 Test Item Value Reference Range Comments MAGNESIUM (BEAKER) (test uwii=763) 1.5 mg/dL 1.6-2.6 Check Serum Magnesium level 2 hours after IV magnesium replacement.POCT-GLUCOSE [id number] 11:59:00 Test Item Value Reference Range Comments POC-GLUCOSE METER (BEAKER) 249 mg/dL 70-110 TESTED AT [address] (test ozzt=8260) [place] [address] RAD, CHEST, 1 VIEW, NON [id number] 09:16:00while patient is intubated or has chest tubes.Reason for exam:->Status post CV SurgeryShould thisbe performed at the bedside?->YesFINAL REPORT Chest one view. Clinical history: Status post CV Surgery Comparison: 10/18/2018 Discussion : A frontal chest is provided. Cardiomediastinal contours are unchanged. Lines and tubes are in stable position. Mild left basilar atelectasis. No madhav pulmonary edema, new consolidation, or significant effusion. Signed: Rodriguez Mera Verified Date/Time: 10/19/2018 09:16:43 Reading Location: [facility] Radiology Reading Room POCT-GLUCOSE [id number] 08:11:00 Test Item Value Reference Range Comments POC-GLUCOSE METER (BEAKER) 154 mg/dL 70-[address] [facility] [address] [facility] (test odbe=9050) [facility] [address] POCT-GLUCOSE [id number] 07:12:00 Test Item Value Reference Range Comments POC-GLUCOSE METER (BEAKER) 154 mg/dL 70-[address] [facility] [address] [facility] (test eeyz=7135) [facility] [address] [id number] 05:31:00 Test Item Value Reference Range Comments PHOSPHORUS (BEAKER) (test vhqh=139) 2.4 mg/dL 2.3-4.7 [id number] 05:31:00 Test Item Value Reference Range Comments MAGNESIUM (BEAKER) (test srlf=838) 2.0 mg/dL 1.6-2.6 BASIC METABOLIC [id number] 05:31:00 Test Item Value Reference Range Comments SODIUM (BEAKER) (test 134 meq/L 136-145 yrau=053) POTASSIUM (BEAKER) (test 3.6 meq/L 3.5-5.1 ecgp=291) CHLORIDE (BEAKER) (test 104 meq/L 98-107 twsz=812) CO2 (BEAKER) (test 19 meq/L 22-29 ugmv=107) BLOOD UREA NITROGEN 21 mg/dL 7-21 (BEAKER) (test xsqu=334) CREATININE (BEAKER) (test 0.91 mg/dL 0.57-1.25 vgbk=835) GLUCOSE RANDOM (BEAKER) 149 mg/dL 70-105 (test gixt=941) CALCIUM (BEAKER) (test 8.6 mg/dL 8.4-10.2 wvcw=108) EGFR (BEAKER) (test 63 mL/min/1.73 sq m ESTIMATED GFR IS NOT kkmo=7580) ACCURATE CREATININE CLEARANCE IN PREDICTING GLOMERULAR FILTRATION RATE. ESTIMATED GFR IS NOT APPLICABLE FOR DIALYSIS PATIENTS. CBC (HEMOGRAM ONLY)2018-10-19 04:56:00 Test Item Value Reference Range Comments WHITE BLOOD CELL COUNT (BEAKER) (test mitz=167) 10.0 K/ L 3.5-10.5 RED BLOOD CELL COUNT (BEAKER) (test oocz=729) 2.87 M/ L 3.93-5.22 HEMOGLOBIN (BEAKER) (test rlop=293) 8.7 GM/DL 11.2-15.7 HEMATOCRIT (BEAKER) (test xmmi=396) 26.4 % 34.1-44.9 MEAN CORPUSCULAR VOLUME (BEAKER) (test bstq=686) 92.0 fL 79.4-94.8 MEAN CORPUSCULAR HEMOGLOBIN (BEAKER) (test 30.3 pg 25.6-32.2 sixf=965) MEAN CORPUSCULAR HEMOGLOBIN CONC (BEAKER) (test 33.0 GM/DL 32.2-35.5 mykd=996) RED CELL DISTRIBUTION WIDTH (BEAKER) (test 15.1 % 11.7-14.4 naxi=500) PLATELET COUNT (BEAKER) (test nwun=273) 168 K/CU MM 150-450 MEAN PLATELET VOLUME (BEAKER) (test pzjy=124) 11.7 fL 9.4-12.3 NUCLEATED RED BLOOD CELLS (BEAKER) (test 0 /100 WBC 0-0 jbnl=982) CALCIUM, [id number] 04:52:00 Test Item Value Reference Range Comments CALCIUM IONIZED (BEAKER) (test ymmo=768) 1.22 mmol/L 1.12-1.27 PH, BLOOD (BEAKER) (test glpf=4782) 7.37 BLOOD GAS, [id number] 04:51:00 Test Item Value Reference Range Comments PH ARTERIAL (BEAKER) (test rsbs=003) 7.37 7.35-7.45 PCO2 ARTERIAL (BEAKER) (test stna=319) 40 mmHg 35-45 PO2 ARTERIAL (BEAKER) (test itfv=434) 197 mmHg 80-90 O2 SATURATION ARTERIAL (BEAKER) (test urxy=606) 99.3 % 96.0-97.0 HCO3 ARTERIAL (BEAKER) (test mewu=125) 22 mmol/L 21-29 BASE EXCESS ARTERIAL (BEAKER) (test yavz=493) -2.7 mmol/L -2.0-3.0 PATIENT TEMPERATURE (BEAKER) (test vubk=1232) 36.8 C FIO2 (BEAKER) (test ienq=3374) 28.0 % POCT-GLUCOSE [id number] 23:28:00 Test Item Value Reference Range Comments POC-GLUCOSE METER (BEAKER) 177 mg/dL 70-[address] [facility] [address] [facility] (test zynu=1032) [facility] [address] POCT-GLUCOSE [id number] 20:14:00 Test Item Value Reference Range Comments POC-GLUCOSE METER (BEAKER) 181 mg/dL 70-[address] [facility] [address] [facility] (test fduo=9212) [facility] [address] POCT-GLUCOSE [id number] 20:14:00 Test Item Value Reference Range Comments POC-GLUCOSE METER (BEAKER) 257 mg/dL 70-110 TESTED AT [place] [id number] [facility] (test lqcj=9198) [facility] [address] LACTIC ACID, [id number] 15:27:00 Test Item Value Reference Range Comments LACTATE BLOOD ARTERIAL (2) (BEAKER) (test 0.8 mmol/L 0.5-2.2 zgqi=7027) BASIC METABOLIC [id number] 15:04:00 Test Item Value Reference Range Comments SODIUM (BEAKER) (test 136 meq/L 136-145 pvsl=231) POTASSIUM (BEAKER) (test 4.0 meq/L 3.5-5.1 dwxy=448) CHLORIDE (BEAKER) (test 104 meq/L 98-107 wdkb=767) CO2 (BEAKER) (test 19 meq/L 22-29 dbeb=747) BLOOD UREA NITROGEN 23 mg/dL 7-21 (BEAKER) (test ewxn=705) CREATININE (BEAKER) (test 1.23 mg/dL 0.57-1.25 zslv=584) GLUCOSE RANDOM (BEAKER) 258 mg/dL 70-105 (test svyp=609) CALCIUM (BEAKER) (test 9.0 mg/dL 8.4-10.2 zlwg=114) EGFR (BEAKER) (test 44 mL/min/1.73 sq m ESTIMATED GFR IS NOT ycrq=2119) ACCURATE CREATININE CLEARANCE IN PREDICTING GLOMERULAR FILTRATION RATE. ESTIMATED GFR IS NOT APPLICABLE FOR DIALYSIS PATIENTS. CBC (HEMOGRAM ONLY)2018-10-18 14:47:00 Test Item Value Reference Range Comments WHITE BLOOD CELL COUNT (BEAKER) (test ofze=965) 9.4 K/ L 3.5-10.5 RED BLOOD CELL COUNT (BEAKER) (test gcri=773) 2.51 M/ L 3.93-5.22 HEMOGLOBIN (BEAKER) (test uuxe=807) 7.7 GM/DL 11.2-15.7 HEMATOCRIT (BEAKER) (test jfrs=571) 23.6 % 34.1-44.9 MEAN CORPUSCULAR VOLUME (BEAKER) (test nzlr=486) 94.0 fL 79.4-94.8 MEAN CORPUSCULAR HEMOGLOBIN (BEAKER) (test 30.7 pg 25.6-32.2 jfty=304) MEAN CORPUSCULAR HEMOGLOBIN CONC (BEAKER) (test 32.6 GM/DL 32.2-35.5 cjmf=796) RED CELL DISTRIBUTION WIDTH (BEAKER) (test 13.7 % 11.7-14.4 ftss=974) PLATELET COUNT (BEAKER) (test nabf=516) 202 K/CU MM 150-450 MEAN PLATELET VOLUME (BEAKER) (test prul=522) 11.7 fL 9.4-12.3 NUCLEATED RED BLOOD CELLS (BEAKER) (test 0 /100 WBC 0-0 afwv=373) CALCIUM, [id number] 14:24:00 Test Item Value Reference Range Comments CALCIUM IONIZED (BEAKER) (test jmgq=776) 1.21 mmol/L 1.12-1.27 PH, BLOOD (BEAKER) (test erob=4518) 7.37 PLATELET AGGREGATION: FUNCTION [id number] 14:23:00 Test Item Value Reference Range Comments WEAK ADP RESULT(BEAKER) (test 5 % 60-91 sicz=7997) PLATELET FUNCTION SCREEN 0-39% indicates marked platelet INTERP (BEAKER) (test dysfunction pqds=8444) ORPF-GWFLBLHJVUE-6365 Kar Eagle M.D. (electonic (BEAKER) (test dnov=1174) signature) PLATELET COUNT AGG (BEAKER) 192 K/CU MM 150-450 (test ovxn=4451) Platelet Function Screen results may be falsely low with platelet counts<100, 000/cu mm.POCT-GLUCOSE [id number] 12:04:00 Test Item Value Reference Range Comments POC-GLUCOSE METER (BEAKER) 153 mg/dL 70-[address] [facility] [address] (test qinc=6435) [place] [address] RAD, CHEST, 1 VIEW, NON [id number] 06:54:00while patient is intubated or has chest tubes.Reason for exam:->Status post CV SurgeryShould thisbe performed at the bedside?->YesFINAL REPORT Chest one view. Clinical history: Status post CV Surgery Comparison: Chest radiograph 10/17 Technique: A single frontal view of the chest was obtained. Findings: There has been interval removal of endotracheal and feeding tubes.There is a left-sided chest tubewith tip in the left lower lobe. There is a mediastinal drain. There is a right IJ central venous catheter with tip in the SVC. The patient is status post median sternotomy.The cardiomediastinal contours are stable. There is consolidation in the left lower lobe which may represent pneumonia/atelectasis. There is mild linear fibrosis in the left upper lobe. There is no pneumothorax or definite pleuraleffusion. Signed: Juan Mendez Verified Date/Time: 10/18/2018 06:54:53 Reading Location: [address] Body Reading Room 06:54 AMOXYGEN SATURATION, [id number] 04:44:00 Test Item Value Reference Range Comments O2 SATURATION (MEASURED) (BEAKER) (test ktyt=6336) 69.8 % CALCIUM, [id number] 04:42:00 Test Item Value Reference Range Comments CALCIUM IONIZED (BEAKER) (test eccd=463) 1.23 mmol/L 1.12-1.27 PH, BLOOD (BEAKER) (test zmqi=9749) 7.32 BLOOD GAS, [id number] 04:42:00 Test Item Value Reference Range Comments PH ARTERIAL (BEAKER) (test piyo=062) 7.33 7.35-7.45 PCO2 ARTERIAL (BEAKER) (test qjay=489) 39 mmHg 35-45 PO2 ARTERIAL (BEAKER) (test dibg=070) 184 mmHg 80-90 O2 SATURATION ARTERIAL (BEAKER) (test fxtu=670) 99.2 % 96.0-97.0 HCO3 ARTERIAL (BEAKER) (test mdjk=016) 20 mmol/L 21-29 BASE EXCESS ARTERIAL (BEAKER) (test ymip=711) -5.4 mmol/L -2.0-3.0 PATIENT TEMPERATURE (BEAKER) (test hxug=2195) 36.7 C FIO2 (BEAKER) (test gofy=0463) 40.0 % LACTIC ACID, [id number] 04:31:00 Test Item Value Reference Range Comments LACTATE BLOOD ARTERIAL (2) (BEAKER) (test 0.6 mmol/L 0.5-2.2 wmpj=5306) [id number] 04:25:00 Test Item Value Reference Range Comments PHOSPHORUS (BEAKER) (test hrli=434) 4.1 mg/dL 2.3-4.7 [id number] 04:25:00 Test Item Value Reference Range Comments MAGNESIUM (BEAKER) (test gcyt=333) 1.7 mg/dL 1.6-2.6 BASIC METABOLIC [id number] 04:25:00 Test Item Value Reference Range Comments SODIUM (BEAKER) (test 142 meq/L 136-145 qjsy=413) POTASSIUM (BEAKER) (test 4.2 meq/L 3.5-5.1 bwqn=017) CHLORIDE (BEAKER) (test 110 meq/L 98-107 hgvf=740) CO2 (BEAKER) (test 20 meq/L 22-29 fpto=003) BLOOD UREA NITROGEN 20 mg/dL 7-21 (BEAKER) (test borj=899) CREATININE (BEAKER) (test 0.96 mg/dL 0.57-1.25 bayl=806) GLUCOSE RANDOM (BEAKER) 154 mg/dL 70-105 (test igxt=266) CALCIUM (BEAKER) (test 9.2 mg/dL 8.4-10.2 ifkf=363) EGFR (BEAKER) (test 59 mL/min/1.73 sq m ESTIMATED GFR IS NOT kpft=7423) ACCURATE CREATININE CLEARANCE IN PREDICTING GLOMERULAR FILTRATION RATE. ESTIMATED GFR IS NOT APPLICABLE FOR DIALYSIS PATIENTS. CBC (HEMOGRAM ONLY)2018-10-18 04:08:00 Test Item Value Reference Range Comments WHITE BLOOD CELL COUNT (BEAKER) (test uhjp=547) 9.3 K/ L 3.5-10.5 RED BLOOD CELL COUNT (BEAKER) (test epld=898) 2.77 M/ L 3.93-5.22 HEMOGLOBIN (BEAKER) (test rxbn=214) 8.6 GM/DL 11.2-15.7 HEMATOCRIT (BEAKER) (test cnly=551) 26.0 % 34.1-44.9 MEAN CORPUSCULAR VOLUME (BEAKER) (test zxke=178) 93.9 fL 79.4-94.8 MEAN CORPUSCULAR HEMOGLOBIN (BEAKER) (test 31.0 pg 25.6-32.2 ecam=646) MEAN CORPUSCULAR HEMOGLOBIN CONC (BEAKER) (test 33.1 GM/DL 32.2-35.5 qvcq=815) RED CELL DISTRIBUTION WIDTH (BEAKER) (test 13.3 % 11.7-14.4 sogh=693) PLATELET COUNT (BEAKER) (test uiku=411) 213 K/CU MM 150-450 MEAN PLATELET VOLUME (BEAKER) (test mbsd=551) 11.4 fL 9.4-12.3 NUCLEATED RED BLOOD CELLS (BEAKER) (test 0 /100 WBC 0-0 ryyj=615) CBC W/PLT COUNT & AUTO [id number] 04:08:00 Test Item Value Reference Range Comments WHITE BLOOD CELL COUNT (BEAKER) (test uspa=267) 9.3 K/ L 3.5-10.5 RED BLOOD CELL COUNT (BEAKER) (test cuft=385) 2.77 M/ L 3.93-5.22 HEMOGLOBIN (BEAKER) (test zosr=279) 8.6 GM/DL 11.2-15.7 HEMATOCRIT (BEAKER) (test plod=307) 26.0 % 34.1-44.9 MEAN CORPUSCULAR VOLUME (BEAKER) (test ziyp=451) 93.9 fL 79.4-94.8 MEAN CORPUSCULAR HEMOGLOBIN (BEAKER) (test 31.0 pg 25.6-32.2 wxyr=116) MEAN CORPUSCULAR HEMOGLOBIN CONC (BEAKER) (test 33.1 GM/DL 32.2-35.5 icjc=701) RED CELL DISTRIBUTION WIDTH (BEAKER) (test 13.3 % 11.7-14.4 nihe=525) PLATELET COUNT (BEAKER) (test fqir=736) 213 K/CU MM 150-450 MEAN PLATELET VOLUME (BEAKER) (test jbxn=900) 11.4 fL 9.4-12.3 NUCLEATED RED BLOOD CELLS (BEAKER) (test 0 /100 WBC 0-0 hiud=850) NEUTROPHILS RELATIVE PERCENT (BEAKER) (test 84 % jxzg=767) LYMPHOCYTES RELATIVE PERCENT (BEAKER) (test 8 % toti=817) MONOCYTES RELATIVE PERCENT (BEAKER) (test 7 % lmyz=151) EOSINOPHILS RELATIVE PERCENT (BEAKER) (test 0 % nvuy=157) BASOPHILS RELATIVE PERCENT (BEAKER) (test 0 % fzkz=225) NEUTROPHILS ABSOLUTE COUNT (BEAKER) (test 7.88 K/ L 1.56-6.13 pvtp=518) LYMPHOCYTES ABSOLUTE COUNT (BEAKER) (test 0.73 K/ L 1.18-3.74 yvke=888) MONOCYTES ABSOLUTE COUNT (BEAKER) (test 0.67 K/ L 0.24-0.36 xeum=397) EOSINOPHILS ABSOLUTE COUNT (BEAKER) (test 0.00 K/ L 0.04-0.36 utgb=092) BASOPHILS ABSOLUTE COUNT (BEAKER) (test 0.04 K/ L 0.01-0.08 ptsl=440) IMMATURE GRANULOCYTES-RELATIVE PERCENT (BEAKER) 0 % 0-1 (test nkwk=6427) PROTHROMBIN [id number] 22:49:00 Test Item Value Reference Range Comments PROTIME (BEAKER) (test qfaw=029) 16.3 seconds 11.7-14.7 INR (BEAKER) (test hpiw=886) 1.3 <=5.9 RECOMMENDED COUMADIN/WARFARIN INR THERAPY RANGESSTANDARD DOSE: 2.0 - 3.0 Includes: PROPHYLAXIS forvenous thrombosis, systemic embolization; TREATMENT for venous thrombosis and/or pulmonary embolus.HIGH RISK: Target INR is 2.5-3.5 for patients with mechanical heart valves.[id number] 22:46:00 Test Item Value Reference Range Comments PARTIAL THROMBOPLASTIN TIME (BEAKER) (test 30.0 seconds 22.5-36.0 klen=583) [id number] 22:45:00 Test Item Value Reference Range Comments FIBRINOGEN LEVEL (BEAKER) (test ugge=275) 290 mg/dl 225-434 LACTIC ACID, [id number] 22:41:00 Test Item Value Reference Range Comments LACTATE BLOOD ARTERIAL (2) (BEAKER) (test 1.1 mmol/L 0.5-2.2 qjhz=8542) [id number] 22:39:00 Test Item Value Reference Range Comments MAGNESIUM (BEAKER) (test emxx=910) 2.0 mg/dL 1.6-2.6 SODIUM NA-STAT [id number] 22:29:00 Test Item Value Reference Range Comments SODIUM (BEAKER) (test bqzl=811) 138 meq/L 135-148 POTASSIUM-STAT [id number] 22:29:00 Test Item Value Reference Range Comments POTASSIUM (BEAKER) (test bmus=721) 3.8 meq/L 3.6-5.5 OXYGEN SATURATION, [id number] 22:29:00 Test Item Value Reference Range Comments O2 SATURATION (MEASURED) (BEAKER) (test dhla=8681) 71.2 % CALCIUM, [id number] 22:29:00 Test Item Value Reference Range Comments CALCIUM IONIZED (BEAKER) (test dhzd=409) 1.25 mmol/L 1.12-1.27 PH, BLOOD (BEAKER) (test pxtt=0495) 7.32 BLOOD GAS, [id number] 22:29:00 Test Item Value Reference Range Comments PH ARTERIAL (BEAKER) (test hukc=683) 7.32 7.35-7.45 PCO2 ARTERIAL (BEAKER) (test kktg=137) 46 mmHg 35-45 PO2 ARTERIAL (BEAKER) (test nyel=204) 158 mmHg 80-90 O2 SATURATION ARTERIAL (BEAKER) (test almu=715) 98.9 % 96.0-97.0 HCO3 ARTERIAL (BEAKER) (test nzpo=364) 23 mmol/L 21-29 BASE EXCESS ARTERIAL (BEAKER) (test frni=376) -3.0 mmol/L -2.0-3.0 PATIENT TEMPERATURE (BEAKER) (test jfrs=4416) 36.7 C FIO2 (BEAKER) (test htmc=1802) 36.0 % GLUCOSE-STAT [id number] 22:29:00 Test Item Value Reference Range Comments GLUCOSE RANDOM (BEAKER) (test rqvj=966) 142 mg/dL 70-110 HGB/HCT (H&H) - STAT [id number] 22:29:00 Test Item Value Reference Range Comments HEMOGLOBIN (BEAKER) (test qdtf=505) 9.1 g/dL 12.0-15.0 HEMATOCRIT (BEAKER) (test zayj=668) 27.0 % 36.0-45.0 BLOOD GAS, [id number] 21:24:00 Test Item Value Reference Range Comments PH ARTERIAL (BEAKER) (test otzp=051) 7.39 7.35-7.45 PCO2 ARTERIAL (BEAKER) (test nqms=614) 35 mmHg 35-45 PO2 ARTERIAL (BEAKER) (test yrir=386) 180 mmHg 80-90 O2 SATURATION ARTERIAL (BEAKER) (test rwty=097) 99.2 % 96.0-97.0 HCO3 ARTERIAL (BEAKER) (test rjcz=664) 21 mmol/L 21-29 BASE EXCESS ARTERIAL (BEAKER) (test zefs=512) -4.0 mmol/L -2.0-3.0 PATIENT TEMPERATURE (BEAKER) (test gweg=9243) 36.7 C FIO2 (BEAKER) (test cqgy=1805) 40.0 % GLUCOSE-STAT [id number] 21:24:00 Test Item Value Reference Range Comments GLUCOSE RANDOM (BEAKER) (test crgw=544) 165 mg/dL 70-110 HGB/HCT (H&H) - STAT [id number] 21:24:00 Test Item Value Reference Range Comments HEMOGLOBIN (BEAKER) (test vujj=560) 9.6 g/dL 12.0-15.0 HEMATOCRIT (BEAKER) (test ljor=549) 28.0 % 36.0-45.0 SODIUM NA-STAT [id number] 21:23:00 Test Item Value Reference Range Comments SODIUM (BEAKER) (test dngk=000) 138 meq/L 135-148 POTASSIUM-STAT [id number] 21:23:00 Test Item Value Reference Range Comments POTASSIUM (BEAKER) (test ddqx=181) 4.0 meq/L 3.6-5.5 RAD, CHEST, 1 VIEW, NON [id number] 19:11:00Reason for exam:->Status post CV Surgery post op day 0Should this be performed at the bedside?->YesFINAL REPORT History: Status post cardiovascular surgery postoperative day 0Comparison: 10/16/2018 Findings: Interval median sternotomy. An endotracheal tube is present, with its tip 3.8 cm proximal to the vidya. Left-sided chest tube and substernal drain are present, without evidence of a pneumothorax. Nasogastric tube tip is in the region of the esophagogastric junction. Right jugular catheter tip is in the SVC region. Lungs clear aside from mild subsegmental atelectasis in the left perihilar region and medial left lung base. No pleural effusions or pneumothorax are identified. Cardiac shadow normal in size. Signed: Delia Cabrera MDReport Verified Date/Time: 10/17/2018 19 :11:13 Reading Location: [facility] B1 [id number] Consult Reading Room [id number] 17:23:00 Test Item Value Reference Range Comments MAGNESIUM (BEAKER) (test 1.8 mg/dL 1.6-2.6 Specimen slightly hemolyzed ecki=560) [id number] 17:23:00 Test Item Value Reference Range Comments PHOSPHORUS (BEAKER) (test 2.9 mg/dL 2.3-4.7 Specimen slightly hemolyzed gtav=411) BASIC METABOLIC [id number] 17:23:00 Test Item Value Reference Range Comments SODIUM (BEAKER) (test 143 meq/L 136-145 huza=068) POTASSIUM (BEAKER) (test 3.2 meq/L 3.5-5.1 Specimen slightly mxrp=258) hemolyzed CHLORIDE (BEAKER) (test 110 meq/L 98-107 xkmq=167) CO2 (BEAKER) (test 21 meq/L 22-29 rrfu=164) BLOOD UREA NITROGEN 22 mg/dL 7-21 (BEAKER) (test eayn=702) CREATININE (BEAKER) (test 0.83 mg/dL 0.57-1.25 Specimen slightly aonm=561) hemolyzed GLUCOSE RANDOM (BEAKER) 155 mg/dL 70-105 (test fsyj=426) CALCIUM (BEAKER) (test 9.9 mg/dL 8.4-10.2 smap=978) EGFR (BEAKER) (test 70 mL/min/1.73 sq m ESTIMATED GFR IS NOT sioh=9159) ACCURATE CREATININE CLEARANCE IN PREDICTING GLOMERULAR FILTRATION RATE. ESTIMATED GFR IS NOT APPLICABLE FOR DIALYSIS PATIENTS. LACTIC ACID, [id number] 17:15:00 Test Item Value Reference Range Comments LACTATE BLOOD ARTERIAL (2) 1.6 mmol/L 0.5-2.2 Specimen slightly hemolyzed (BEAKER) (test zeus=9557) THROMBOELASTOGRAPH (TEG)2018-10-17 16:56:00 Test Item Value Reference Range Comments TEG ACTIVATED CLOTTING TIME (BEAKER) (test 8.2 minutes 4.0-7.0 cegb=0687) TEG FIBRINOGEN ACTIVITY (BEAKER) (test 66.8 degrees 61.0-73.0 lyvy=9348) TEG PLT. AGGREGATION (BEAKER) (test miuj=1173) 50.6 MM 55.0-65.0 TEG FIBRINOLYSIS (BEAKER) (test vfme=7836) 0.0 % 0.0-5.0 TGH ACTIVATED CLOTTING TIME (BEAKER) (test 8.9 minutes 4.0-7.0 osql=4306) TGH FIBRINOGEN ACTIVITY (BEAKER) (test 70.8 degrees 61.0-73.0 zwdb=7519) TGH PLT. AGGREGATION (BEAKER) (test bgeo=6701) 53.7 MM 55.0-65.0 TGH FIBRINOLYSIS (BEAKER) (test mprd=6463) 0.0 % 0.0-5.0 PROTHROMBIN [id number] 16:54:00 Test Item Value Reference Range Comments PROTIME (BEAKER) (test wjyt=407) 19.4 seconds 11.7-14.7 INR (BEAKER) (test wwag=793) 1.6 <=5.9 RECOMMENDED COUMADIN/WARFARIN INR THERAPY RANGESSTANDARD DOSE: 2.0 - 3.0 Includes: PROPHYLAXIS forvenous thrombosis, systemic embolization; TREATMENT for venous thrombosis and/or pulmonary embolus.HIGH RISK: Target INR is 2.5-3.5 for patients with mechanical heart valves.[id number] 16:54:00 Test Item Value Reference Range Comments FIBRINOGEN LEVEL (BEAKER) (test gppb=272) 272 mg/dl 225-434 [id number] 16:54:00 Test Item Value Reference Range Comments PARTIAL THROMBOPLASTIN TIME (BEAKER) (test 30.3 seconds 22.5-36.0 rbvh=701) CBC W/PLT COUNT & AUTO [id number] 16:51:00 Test Item Value Reference Range Comments WHITE BLOOD CELL COUNT (BEAKER) (test xvlp=016) 16.3 K/ L 3.5-10.5 RED BLOOD CELL COUNT (BEAKER) (test frkb=702) 3.25 M/ L 3.93-5.22 HEMOGLOBIN (BEAKER) (test bbta=400) 10.0 GM/DL 11.2-15.7 HEMATOCRIT (BEAKER) (test hpgb=349) 30.3 % 34.1-44.9 MEAN CORPUSCULAR VOLUME (BEAKER) (test bljx=431) 93.2 fL 79.4-94.8 MEAN CORPUSCULAR HEMOGLOBIN (BEAKER) (test 30.8 pg 25.6-32.2 irji=876) MEAN CORPUSCULAR HEMOGLOBIN CONC (BEAKER) (test 33.0 GM/DL 32.2-35.5 jgig=953) RED CELL DISTRIBUTION WIDTH (BEAKER) (test 12.8 % 11.7-14.4 ahxy=436) PLATELET COUNT (BEAKER) (test hncs=449) 248 K/CU MM 150-450 MEAN PLATELET VOLUME (BEAKER) (test puny=207) 10.8 fL 9.4-12.3 NUCLEATED RED BLOOD CELLS (BEAKER) (test 0 /100 WBC 0-0 xnwd=492) NEUTROPHILS RELATIVE PERCENT (BEAKER) (test 76 % akwo=037) LYMPHOCYTES RELATIVE PERCENT (BEAKER) (test 18 % zcbg=514) MONOCYTES RELATIVE PERCENT (BEAKER) (test 4 % clig=419) EOSINOPHILS RELATIVE PERCENT (BEAKER) (test 1 % zxex=995) BASOPHILS RELATIVE PERCENT (BEAKER) (test 0 % mulk=478) NEUTROPHILS ABSOLUTE COUNT (BEAKER) (test 12.32 K/ L 1.56-6.13 fqoo=778) LYMPHOCYTES ABSOLUTE COUNT (BEAKER) (test 2.94 K/ L 1.18-3.74 cmdh=238) MONOCYTES ABSOLUTE COUNT (BEAKER) (test 0.65 K/ L 0.24-0.36 srht=550) EOSINOPHILS ABSOLUTE COUNT (BEAKER) (test 0.19 K/ L 0.04-0.36 mvss=193) BASOPHILS ABSOLUTE COUNT (BEAKER) (test 0.06 K/ L 0.01-0.08 lxvg=270) IMMATURE GRANULOCYTES-RELATIVE PERCENT (BEAKER) 1 % 0-1 (test zknt=3196) PLATELET [id number] 16:44:00 Test Item Value Reference Range Comments PLATELET COUNT (BEAKER) (test dclw=928) 248 K/CU MM 150-450 OXYGEN SATURATION, [id number] 16:39:00 Test Item Value Reference Range Comments O2 SATURATION (MEASURED) (BEAKER) (test woua=8809) 74.7 % BLOOD GAS, [id number] 16:35:00 Test Item Value Reference Range Comments PH ARTERIAL (BEAKER) (test omis=126) 7.44 7.35-7.45 PCO2 ARTERIAL (BEAKER) (test hbqn=523) 30 mmHg 35-45 PO2 ARTERIAL (BEAKER) (test rnod=751) 230 mmHg 80-90 O2 SATURATION ARTERIAL (BEAKER) (test dzhi=288) 99.6 % 96.0-97.0 HCO3 ARTERIAL (BEAKER) (test vkfx=877) 20 mmol/L 21-29 BASE EXCESS ARTERIAL (BEAKER) (test papq=517) -3.5 mmol/L -2.0-3.0 PATIENT TEMPERATURE (BEAKER) (test mods=2220) 34.9 C FIO2 (BEAKER) (test vqta=9632) 50.0 % CALCIUM, [id number] 15:49:00 Test Item Value Reference Range Comments CALCIUM IONIZED (BEAKER) (test swpw=394) 1.17 mmol/L 1.12-1.27 PH, BLOOD (BEAKER) (test bpye=4766) 7.37 BLOOD GAS, [id number] 15:49:00 Test Item Value Reference Range Comments PH ARTERIAL (BEAKER) (test wqnd=023) 7.37 7.35-7.45 PCO2 ARTERIAL (BEAKER) (test owld=267) 37 mmHg 35-45 PO2 ARTERIAL (BEAKER) (test basb=186) 461 mmHg 80-90 O2 SATURATION ARTERIAL (BEAKER) (test ezkz=457) 99.9 % 96.0-97.0 HCO3 ARTERIAL (BEAKER) (test efjd=495) 21 mmol/L 21-29 BASE EXCESS ARTERIAL (BEAKER) (test itfl=863) -4.1 mmol/L -2.0-3.0 PATIENT TEMPERATURE (BEAKER) (test jymx=9323) 35.0 C FIO2 (BEAKER) (test ucqc=1276) 100.0 % POTASSIUM-STAT [id number] 15:49:00 Test Item Value Reference Range Comments POTASSIUM (BEAKER) (test kgja=222) 2.9 meq/L 3.6-5.5 GLUCOSE-STAT [id number] 15:49:00 Test Item Value Reference Range Comments GLUCOSE RANDOM (BEAKER) (test wqok=933) 168 mg/dL 70-110 HGB/HCT (H&H) - STAT [id number] 15:49:00 Test Item Value Reference Range Comments HEMOGLOBIN (BEAKER) (test yucn=053) 10.0 g/dL 12.0-15.0 HEMATOCRIT (BEAKER) (test svvz=930) 29.0 % 36.0-45.0 SODIUM NA-STAT [id number] 15:48:00 Test Item Value Reference Range Comments SODIUM (BEAKER) (test fxlz=538) 138 meq/L 135-148 PROTHROMBIN [id number] 15:30:00 Test Item Value Reference Range Comments PROTIME (BEAKER) (test boxo=581) 22.9 seconds 11.7-14.7 INR (BEAKER) (test ohiw=985) 2.0 <=5.9 RECOMMENDED COUMADIN/WARFARIN INR THERAPY RANGESSTANDARD DOSE: 2.0 - 3.0 Includes: PROPHYLAXIS forvenous thrombosis, systemic embolization; TREATMENT for venous thrombosis and/or pulmonary embolus.HIGH RISK: Target INR is 2.5-3.5 for patients with mechanical heart valves.[id number] 15:30:00 Test Item Value Reference Range Comments PARTIAL THROMBOPLASTIN TIME (BEAKER) (test 32.6 seconds 22.5-36.0 sszb=408) [id number] 15:30:00 Test Item Value Reference Range Comments FIBRINOGEN LEVEL (BEAKER) (test dccf=971) 202 mg/dl 225-434 [id number] 15:15:00 Test Item Value Reference Range Comments ACTIVATED CLOTTING TIME [address] [facility] [address] (BEAKER) (test cvlx=795) [place] [address] [id number] 15:15:00 Test Item Value Reference Range Comments ACTIVATED CLOTTING TIME [address] [facility] [address] (BEAKER) (test pvdx=658) [place] [id number] 15:15:00 Test Item Value Reference Range Comments ACTIVATED CLOTTING TIME [address] [facility] [address] (BEAKER) (test ewve=508) [place] [address] [id number] 15:15:00 Test Item Value Reference Range Comments ACTIVATED CLOTTING TIME 692 sec TESTED AT [place] [address] (BEAKER) (test oxvs=989) [place] [address] PLATELET [id number] 15:13:00 Test Item Value Reference Range Comments PLATELET COUNT (BEAKER) (test bbwb=464) 185 K/CU MM 150-450 BLOOD GAS, [id number] 15:06:00 Test Item Value Reference Range Comments PH ARTERIAL (BEAKER) (test pvzm=048) 7.45 7.35-7.45 PCO2 ARTERIAL (BEAKER) (test naeo=122) 34 mmHg 35-45 PO2 ARTERIAL (BEAKER) (test wqgo=897) 439 mmHg 80-90 O2 SATURATION ARTERIAL (BEAKER) (test drqi=287) 99.9 % 96.0-97.0 HCO3 ARTERIAL (BEAKER) (test cjut=976) 23 mmol/L 21-29 BASE EXCESS ARTERIAL (BEAKER) (test ptlb=601) -1.3 mmol/L -2.0-3.0 PATIENT TEMPERATURE (BEAKER) (test yzcj=7249) 35.1 C FIO2 (BEAKER) (test hhfv=2098) 100.0 % POTASSIUM-STAT [id number] 15:06:00 Test Item Value Reference Range Comments POTASSIUM (BEAKER) (test kdrv=365) 3.4 meq/L 3.6-5.5 GLUCOSE-STAT [id number] 15:06:00 Test Item Value Reference Range Comments GLUCOSE RANDOM (BEAKER) (test tgvg=139) 156 mg/dL 70-110 HGB/HCT (H&H) - STAT [id number] 15:06:00 Test Item Value Reference Range Comments HEMOGLOBIN (BEAKER) (test kahg=393) 7.0 g/dL 12.0-15.0 HEMATOCRIT (BEAKER) (test wfat=811) 21.0 % 36.0-45.0 CALCIUM, [id number] 15:06:00 Test Item Value Reference Range Comments CALCIUM IONIZED (BEAKER) (test pili=734) 1.10 mmol/L 1.12-1.27 PH, BLOOD (BEAKER) (test abtk=5104) 7.45 SODIUM NA-STAT [id number] 15:05:00 Test Item Value Reference Range Comments SODIUM (BEAKER) (test qdkh=893) 136 meq/L 135-148 GLUCOSE-STAT [id number] 14:12:00 Test Item Value Reference Range Comments GLUCOSE RANDOM (BEAKER) (test bonf=026) 150 mg/dL 70-110 POTASSIUM-STAT [id number] 14:12:00 Test Item Value Reference Range Comments POTASSIUM (BEAKER) (test htvm=123) 3.3 meq/L 3.6-5.5 HGB/HCT (H&H) - STAT [id number] 14:12:00 Test Item Value Reference Range Comments HEMOGLOBIN (BEAKER) (test bybm=002) 6.3 g/dL 12.0-15.0 HEMATOCRIT (BEAKER) (test matx=193) 19.0 % 36.0-45.0 SODIUM NA-STAT [id number] 14:11:00 Test Item Value Reference Range Comments SODIUM (BEAKER) (test fjgo=913) 136 meq/L 135-148 BLOOD GAS, [id number] 14:11:00 Test Item Value Reference Range Comments PH ARTERIAL (BEAKER) (test zadw=168) 7.48 7.35-7.45 PCO2 ARTERIAL (BEAKER) (test raco=641) 33 mmHg 35-45 PO2 ARTERIAL (BEAKER) (test exgr=602) 260 mmHg 80-90 O2 SATURATION ARTERIAL (BEAKER) (test dban=908) 99.7 % 96.0-97.0 HCO3 ARTERIAL (BEAKER) (test alcm=542) 26 mmol/L 21-29 BASE EXCESS ARTERIAL (BEAKER) (test hveq=777) 0.8 mmol/L -2.0-3.0 PATIENT TEMPERATURE (BEAKER) (test sjug=7679) 31.6 C FIO2 (BEAKER) (test uszd=5797) 65.0 % HGB/HCT (H&H) - STAT [id number] 13:47:00 Test Item Value Reference Range Comments HEMOGLOBIN (BEAKER) (test mjyw=436) 6.0 g/dL 12.0-15.0 HEMATOCRIT (BEAKER) (test gawg=728) 18.0 % 36.0-45.0 BLOOD GAS, [id number] 13:46:00 Test Item Value Reference Range Comments PH ARTERIAL (BEAKER) (test dokp=405) 7.40 7.35-7.45 PCO2 ARTERIAL (BEAKER) (test hdxu=786) 34 mmHg 35-45 PO2 ARTERIAL (BEAKER) (test vkuf=234) 381 mmHg 80-90 O2 SATURATION ARTERIAL (BEAKER) (test vaky=366) 99.8 % 96.0-97.0 HCO3 ARTERIAL (BEAKER) (test risc=798) 21 mmol/L 21-29 BASE EXCESS ARTERIAL (BEAKER) (test flic=352) -4.4 mmol/L -2.0-3.0 PATIENT TEMPERATURE (BEAKER) (test ribu=9862) 32.7 C FIO2 (BEAKER) (test oikn=7520) 70.0 % GLUCOSE-STAT [id number] 13:46:00 Test Item Value Reference Range Comments GLUCOSE RANDOM (BEAKER) (test ggla=137) 142 mg/dL 70-110 SODIUM NA-STAT [id number] 13:46:00 Test Item Value Reference Range Comments SODIUM (BEAKER) (test sbzt=388) 132 meq/L 135-148 POTASSIUM-STAT [id number] 13:45:00 Test Item Value Reference Range Comments POTASSIUM (BEAKER) (test xqyn=177) 3.8 meq/L 3.6-5.5 GLUCOSE-STAT [id number] 12:48:00 Test Item Value Reference Range Comments GLUCOSE RANDOM (BEAKER) (test bgup=617) 80 mg/dL 70-110 SODIUM NA-STAT [id number] 12:48:00 Test Item Value Reference Range Comments SODIUM (BEAKER) (test biij=771) 137 meq/L 135-148 BLOOD GAS, [id number] 12:48:00 Test Item Value Reference Range Comments PH ARTERIAL (BEAKER) (test dekk=248) 7.45 7.35-7.45 PCO2 ARTERIAL (BEAKER) (test yzuo=571) 34 mmHg 35-45 PO2 ARTERIAL (BEAKER) (test cicj=895) 348 mmHg 80-90 O2 SATURATION ARTERIAL (BEAKER) (test hxbz=542) 99.8 % 96.0-97.0 HCO3 ARTERIAL (BEAKER) (test vlaw=978) 23 mmol/L 21-29 BASE EXCESS ARTERIAL (BEAKER) (test szfc=431) -0.8 mmol/L -2.0-3.0 PATIENT TEMPERATURE (BEAKER) (test jxlz=9940) 35.5 C FIO2 (BEAKER) (test wyiu=2552) 100.0 % POTASSIUM-STAT [id number] 12:48:00 Test Item Value Reference Range Comments POTASSIUM (BEAKER) (test fwoi=030) 3.1 meq/L 3.6-5.5 HGB/HCT (H&H) - STAT [id number] 12:48:00 Test Item Value Reference Range Comments HEMOGLOBIN (BEAKER) (test ccxu=725) 11.6 g/dL 12.0-15.0 HEMATOCRIT (BEAKER) (test luym=780) 34.0 % 36.0-45.0 POCT-GLUCOSE [id number] 09:55:00 Test Item Value Reference Range Comments POC-GLUCOSE METER (BEAKER) 127 mg/dL 70-[address] [facility] [address] [facility] (test boyr=9815) [facility] [address] BASIC METABOLIC [id number] 04:58:00 Test Item Value Reference Range Comments SODIUM (BEAKER) (test 140 meq/L 136-145 swzm=422) POTASSIUM (BEAKER) (test 3.3 meq/L 3.5-5.1 kian=285) CHLORIDE (BEAKER) (test 104 meq/L 98-107 emih=577) CO2 (BEAKER) (test 29 meq/L 22-29 txab=317) BLOOD UREA NITROGEN 27 mg/dL 7-21 (BEAKER) (test slty=957) CREATININE (BEAKER) (test 1.13 mg/dL 0.57-1.25 wivs=978) GLUCOSE RANDOM (BEAKER) 101 mg/dL 70-105 (test vmfn=354) CALCIUM (BEAKER) (test 10.0 mg/dL 8.4-10.2 xiuj=430) EGFR (BEAKER) (test 49 mL/min/1.73 sq m ESTIMATED GFR IS NOT guyl=7105) ACCURATE CREATININE CLEARANCE IN PREDICTING GLOMERULAR FILTRATION RATE. ESTIMATED GFR IS NOT APPLICABLE FOR DIALYSIS PATIENTS. CBC (HEMOGRAM ONLY)2018-10-17 04:36:00 Test Item Value Reference Range Comments WHITE BLOOD CELL COUNT (BEAKER) (test ehhi=144) 7.7 K/ L 3.5-10.5 RED BLOOD CELL COUNT (BEAKER) (test nhwg=136) 3.76 M/ L 3.93-5.22 HEMOGLOBIN (BEAKER) (test trmf=961) 11.5 GM/DL 11.2-15.7 HEMATOCRIT (BEAKER) (test dulh=142) 34.7 % 34.1-44.9 MEAN CORPUSCULAR VOLUME (BEAKER) (test gfey=370) 92.3 fL 79.4-94.8 MEAN CORPUSCULAR HEMOGLOBIN (BEAKER) (test 30.6 pg 25.6-32.2 hmme=186) MEAN CORPUSCULAR HEMOGLOBIN CONC (BEAKER) (test 33.1 GM/DL 32.2-35.5 ilow=045) RED CELL DISTRIBUTION WIDTH (BEAKER) (test 12.5 % 11.7-14.4 vyzi=875) PLATELET COUNT (BEAKER) (test awab=329) 213 K/CU MM 150-450 MEAN PLATELET VOLUME (BEAKER) (test ruwt=614) 11.5 fL 9.4-12.3 NUCLEATED RED BLOOD CELLS (BEAKER) (test 0 /100 WBC 0-0 zimz=430) RAD, CHEST, 1 VIEW, NON [id number] 22:23:00Reason for exam:->Pre Op ScreeninigShould this be performed at the bedside?->YesFINAL REPORT History: Preoperative evaluation, surgery unspecified. Comparison: None. Findings: A single view of the chest is submitted. The cardiac silhouette is within normal limits for size. There is atherosclerotic calcification of the aorta. There is no focal consolidation, pneumothorax, large pleural effusion or evidence of overt pulmonary edema. There is no acute bony abnormality. Signed: Mateusz Olea MDReport Verified Date/Time: 22:23:52 Reading Location: [address] Reading Room HEMOGLOBIN [id number] 21:57:00 Test Item Value Reference Range Comments HEMOGLOBIN A1C (BEAKER) (test uzxt=805) 6.8 % 4.3-6.1 POCT-GLUCOSE [id number] 21:27:00 Test Item Value Reference Range Comments POC-GLUCOSE METER (BEAKER) 118 mg/dL 70-[address] [facility] [address] [facility] (test ppzq=1764) [facility] [address] [id number] 19:18:00 Test Item Value Reference Range Comments MAGNESIUM (BEAKER) (test 2.3 mg/dL 1.6-2.6 Specimen moderately hemolyzed kgra=208) COMPREHENSIVE METABOLIC [id number] 19:18:00 Test Item Value Reference Range Comments TOTAL PROTEIN (BEAKER) 7.0 gm/dL 6.0-8.3 Specimen moderately (test vcwy=931) hemolyzed ALBUMIN (BEAKER) (test 3.8 g/dL 3.5-5.0 Specimen moderately kxbp=8788) hemolyzed ALKALINE PHOSPHATASE 55 U/L 40-150 (BEAKER) (test prpz=394) BILIRUBIN TOTAL (BEAKER) 0.6 mg/dL 0.2-1.2 Specimen moderately (test qmsc=407) hemolyzed SODIUM (BEAKER) (test 138 meq/L 136-145 zsmh=115) POTASSIUM (BEAKER) (test 4.5 meq/L 3.5-5.1 Specimen moderately anrd=869) hemolyzed CHLORIDE (BEAKER) (test 104 meq/L 98-107 cexx=839) CO2 (BEAKER) (test 26 meq/L 22-29 uwkn=008) BLOOD UREA NITROGEN 27 mg/dL 7-21 (BEAKER) (test dfbh=313) CREATININE (BEAKER) (test 1.18 mg/dL 0.57-1.25 Specimen moderately wpid=227) hemolyzed GLUCOSE RANDOM (BEAKER) 142 mg/dL 70-105 (test ualk=670) CALCIUM (BEAKER) (test 9.6 mg/dL 8.4-10.2 ztrn=325) AST (SGOT) (BEAKER) (test 48 U/L 5-34 Specimen moderately ffvj=478) hemolyzed ALT (SGPT) (BEAKER) (test 50 U/L 6-55 Specimen moderately tgzf=257) hemolyzed EGFR (BEAKER) (test 46 mL/min/1.73 sq m ESTIMATED GFR IS NOT tzjw=9479) ACCURATE CREATININE CLEARANCE IN PREDICTING GLOMERULAR FILTRATION RATE. ESTIMATED GFR IS NOT APPLICABLE FOR DIALYSIS PATIENTS. LIPID [id number] 19:18:00 Test Item Value Reference Range Comments TRIGLYCERIDES (BEAKER) (test 131 mg/dL Specimen moderately ekuz=166) hemolyzed CHOLESTEROL (BEAKER) (test 118 mg/dL Specimen moderately ppjt=952) hemolyzed HDL CHOLESTEROL (BEAKER) (test 37 mg/dL aett=662) LDL CHOLESTEROL CALCULATED 55 mg/dL (BEAKER) (test eanj=485) Triglyceride Reference Range: Low Risk <150 Borderline 150- 199 High Risk 200-499 Very High Risk >=500Cholesterol Reference Range: Low Risk <200 Borderline 200-239 High Risk > 240HDL Cholesterol Reference Range: Low Risk >=60 High Risk <40LDL Cholesterol Reference Range: Optimal <100 Near Optimal 100-129 Borderline 130-159 High 160-189 Very High >=190PROTHROMBIN [id number] 19:00:00 Test Item Value Reference Range Comments PROTIME (BEAKER) (test rbwo=047) 14.8 seconds 11.7-14.7 INR (BEAKER) (test kxir=980) 1.2 <=5.9 RECOMMENDED COUMADIN/WARFARIN INR THERAPY RANGESSTANDARD DOSE: 2.0 - 3.0 Includes: PROPHYLAXIS forvenous thrombosis, systemic embolization; TREATMENT for venous thrombosis and/or pulmonary embolus.HIGH RISK: Target INR is 2.5-3.5 for patients with mechanical heart valves.[id number] 19:00:00 Test Item Value Reference Range Comments PARTIAL THROMBOPLASTIN TIME (BEAKER) (test 33.8 seconds 22.5-36.0 hjer=952) CBC W/PLT COUNT & AUTO [id number] 18:51:00 Test Item Value Reference Range Comments WHITE BLOOD CELL COUNT (BEAKER) (test qoll=223) 7.8 K/ L 3.5-10.5 RED BLOOD CELL COUNT (BEAKER) (test yogg=823) 3.90 M/ L 3.93-5.22 HEMOGLOBIN (BEAKER) (test ncre=619) 11.8 GM/DL 11.2-15.7 HEMATOCRIT (BEAKER) (test phrr=483) 36.4 % 34.1-44.9 MEAN CORPUSCULAR VOLUME (BEAKER) (test eqfp=466) 93.3 fL 79.4-94.8 MEAN CORPUSCULAR HEMOGLOBIN (BEAKER) (test 30.3 pg 25.6-32.2 vxrh=853) MEAN CORPUSCULAR HEMOGLOBIN CONC (BEAKER) (test 32.4 GM/DL 32.2-35.5 gwte=333) RED CELL DISTRIBUTION WIDTH (BEAKER) (test 12.7 % 11.7-14.4 vcnm=972) PLATELET COUNT (BEAKER) (test bvzn=372) 237 K/CU MM 150-450 MEAN PLATELET VOLUME (BEAKER) (test izuu=322) 12.1 fL 9.4-12.3 NUCLEATED RED BLOOD CELLS (BEAKER) (test 0 /100 WBC 0-0 pmbr=153) NEUTROPHILS RELATIVE PERCENT (BEAKER) (test 59 % jhjz=475) LYMPHOCYTES RELATIVE PERCENT (BEAKER) (test 32 % iyyp=188) MONOCYTES RELATIVE PERCENT (BEAKER) (test 7 % goeu=112) EOSINOPHILS RELATIVE PERCENT (BEAKER) (test 2 % brkz=301) BASOPHILS RELATIVE PERCENT (BEAKER) (test 1 % hmyf=984) NEUTROPHILS ABSOLUTE COUNT (BEAKER) (test 4.61 K/ L 1.56-6.13 cvsj=662) LYMPHOCYTES ABSOLUTE COUNT (BEAKER) (test 2.47 K/ L 1.18-3.74 gubm=913) MONOCYTES ABSOLUTE COUNT (BEAKER) (test 0.52 K/ L 0.24-0.36 oivu=063) EOSINOPHILS ABSOLUTE COUNT (BEAKER) (test 0.16 K/ L 0.04-0.36 sibx=798) BASOPHILS ABSOLUTE COUNT (BEAKER) (test 0.06 K/ L 0.01-0.08 ivqw=514) IMMATURE GRANULOCYTES-RELATIVE PERCENT (BEAKER) 0 % 0-1 (test laqe=9964) POCT-GLUCOSE [id number] 16:12:00 Test Item Value Reference Range Comments POC-GLUCOSE METER (HANNAH) 93 mg/dL 70-[address] [facility] [address] [facility] (test fjwm=0724) [facility] [id number]
[2019-06-10] MEDS ORDERED: NA CHLORIDE 0.9% 1,000 ML ONE ×2 (18:58→19:21)
[2019-06-10 19:11] LABS: Absolute Lymphocytes (CBC) 1.3 K/uL (0.7-4.9); Basophils % 0.9 % (0-1.3); Hematocrit 40.9 % (36.0-45.0); Lymphocytes % 33.4 % (15.3-44.8); MPV 10.6 fL (7.6-11.3); RBC Red Blood Cell Count 4.47 M/uL (3.86-4.86)
[2019-06-10 19:14] LABS: Protime INR 1.35
--- NOTE | 2019-06-10 19:16 | RAD REPORT ---
EXAM DESCRIPTION: RAD - Chest Single View - 06/10/2019 7:00 pm CLINICAL HISTORY: Abdominal pain, abdominal distention COMPARISON: September 2018 TECHNIQUE: AP portable chest image was obtained 1840 hours . FINDINGS: No focal lung parenchymal pattern. Interstitial pattern is stable. Heart and vasculature a re normal. No measurable pleural effusion and no pneumothorax. No acute bony abnormality seen. No acu te aortic findings suspected. IMPRESSION: No acute cardiopulmonary process.
[2019-06-10] MEDS ORDERED: Levofloxacin500mg IV 500 MG/100 ML BAG IV ONE (19:21)
[2019-06-10] MEDS ORDERED: METRONIDAZOLE 500mg IVPB 500 MG/100 ML BAG IV ONE (19:22)
[2019-06-10 19:34] LABS: ALT/SGPT 40 U/L (12-78); AST/SGOT 40 U/L (15-37); Albumin 3.8 g/dL (3.4-5.0); Alkaline Phosphatase 66 U/L (45-117); BUN Blood Urea Nitrogen 25 mg/dL (7-18); Bicarbonate 22 mmol/L (21-32); Bilirubin Direct 0.1 mg/dL (0-0.2); Bilirubin Total 0.4 mg/dL (0.2-1.0); Glucose Level 125 mg/dL (74-106); Lipase 46 U/L (73-393); NT PRO-BNP 1416 pg/mL (<125); Potassium 4.3 mmol/L (3.5-5.1); Protein, Total 7.2 g/dL (6.4-8.2); Sodium Level 136 mmol/L (136-145); Troponin (Emerg Dept Use Only) < 0.02 ng/mL (0.0-0.045)
[2019-06-10 20:09] LABS: Blood Morphology Comment NOT SEEN (NOT SEEN); Platelet Estimate ADEQ; Urine White Blood Cell Casts OK
--- NOTE | 2019-06-10 21:00 | ER ---
Nurse's Notes [facility] Name: Lynda Tsang Age: 64 yrs Sex: Female : 1955 Arrival Date: 06/10/2019 Time: 18:03 Bed 8 Private MD: Kamaljit Peralta Diagnosis: Vomiting;Cough;Diarrhea, unspecified;Influenza due to identified novel influenza A virus Presentation: 06/10 18:08 Presenting complaint: Patient states: Last 3 days have had a fever, HERNANDEZ, diarrhea. jl7 Transition of care: patient was not received from another setting of care. Onset of symptoms was June 07, 2019. Risk Assessment: Do you want to hurt yourself or someone else? Patient reports no desire to harm self or others. Initial Sepsis Screen: Does the patient meet any 2 criteria? No. Patient's initial sepsis screen is negative. Does the patient have a suspected source of infection? No. Patient's initial sepsis screen is negative. Care prior to arrival: None. 18:08 Method Of Arrival: Ambulatory jl7 18:08 Acuity: ORESTES 3 jl7 Triage Assessment: 18:12 General: Appears in no apparent distress. uncomfortable, Behavior is calm, cooperative, jl7 appropriate for age. Pain: Denies pain. GI: Stools are reported to be diarrhea. Historical: - Allergies: 18:12 CITRIC ACID; jl7 18:12 Lisinopril; jl7 - Home Meds: 18:12 amlodipine 2.5 mg tab 1 tab once daily [Active]; aspirin 81 mg Oral TbEC 1 tab once jl7 daily [Active]; B Complex Plus Vitamin C 41-73-59-5-300 mg Oral cap [Active]; biotin 5000 mcg Oral [Active]; chlorthalidone 25 mg Oral tab 1 tab once daily [Active]; clopidogrel 75 mg Oral tab 1 tab once daily [Active]; Fish Oil Oral [Active]; Jardiance Oral [Active]; losartan 100 mg Oral tab 1 tab once daily [Active]; Nature's Thyroid [Active]; rosuvastatin 10 mg Oral tab 1 tab once daily [Active]; Vitamin D3 Oral [Active]; - PMHx: 18:12 Diabetes - NIDDM; Hypertension; High Cholesterol; jl7 - PSHx: 18:12 Heart stents; D \T\ C; cataract; rectocele; jl7 - Immunization history:: Adult Immunizations up to date. - Social history:: Smoking status: Patient/guardian denies using tobacco. - Ebola Screening: : No symptoms or risks identified at this time. - Family history:: not pertinent. Screenin:00 Abuse screen: Denies threats or abuse. Nutritional screening: Has had N/V for 3 or more vc days. Tuberculosis screening: No symptoms or risk factors identified. Fall Risk Secondary diagnosis (15 points) impaired mobility, IV access (20 points). Total Bloom Fall Scale indicates Low Risk Score (25-44 pts). Assessment: 19:37 General: Appears in no apparent distress. uncomfortable, Behavior is calm, cooperative, jd3 appropriate for age. Pain: Complains of pain in head and abdomen Quality of pain is described as aching. 19:37 Neuro: Level of Consciousness is awake, alert, obeys commands, Oriented to person, jd3 place, time, situation. Cardiovascular: Denies chest pain, Capillary refill < 3 seconds Patient's skin is warm and dry. Respiratory: Reports cough that is Airway is patent Respiratory effort is even, unlabored, Respiratory pattern is regular, symmetrical, Denies shortness of breath. GI: Abdomen is round non-distended, Reports diarrhea, nausea, tolerance of fluids, Patient currently denies vomiting. : No signs and/or symptoms were reported regarding the genitourinary system. EENT: No signs and/or symptoms were reported regarding the EENT system. Derm: Skin is intact, Skin is dry, Skin is normal, Skin temperature is warm. Musculoskeletal: Circulation, motion, and sensation intact. Range of motion: intact in all extremities. 20:30 Reassessment: Patient and/or family updated on plan of care and expected duration. Pain ea level reassessed. Patient is alert, oriented x 3, equal unlabored respirations, skin warm/dry/pink. 21:31 Reassessment: Patient and/or family updated on plan of care and expected duration. Pain ea level reassessed. Patient is alert, oriented x 3, equal unlabored respirations, skin warm/dry/pink. Awaiting on IV fluids to complete. 22:05 Reassessment: Patient and/or family updated on plan of care and expected duration. Pain ea level reassessed. Patient is alert, oriented x 3, equal unlabored respirations, skin warm/dry/pink. Discharge instruction given to patient, verbalized the understanding of instruction. Pt left ED ambulatory accompanied by family. Pt tolerating well Patient states feeling better. Vital Signs: 18:12 BP 115 / 62; Pulse 87; Resp 16 S; Temp 98.9(O); Pulse Ox 99% on R/A; jl7 20:50 BP 139 / 57; Pulse 78; Resp 18; Pulse Ox 98% on R/A; ea 21:32 BP 153 / 66; Pulse 67; Resp 18; Pulse Ox 99% on R/A; ea ED Course: 18:03 Patient arrived in ED. as 18:04 Kamaljit Peralta MD is Private Physician. as 18:10 Triage completed. jl7 18:12 Arm band placed on right wrist. jl7 18:18 Jimbo Mnotoya MD is Attending Physician. [facility] 18:25 Bed in low position. Call light in reach. Side rails up X 1. Verbal reassurance given. jp3 court recording monitor on. Pulse ox on. NIBP on. 18:38 Lashell Wayne, RN is Primary Nurse. vc 18:50 EKG done, by ED staff, reviewed by Jimbo Montoya MD. Initial lab(s) drawn, by pa, sent jp3 to lab. Inserted saline lock: 20 gauge in right forearm, using aseptic technique. Blood collected. 19:01 XRAY Chest (1 view) In Process Unspecified. EDMS 19:05 Report given to Charline CEJA. vc 19:15 Patient maintains SpO2 saturation greater than 95% on room air. jp3 19:18 LFT's Sent. jp3 19:18 CBC with Diff Sent. jp3 19:18 Basic Metabolic Panel Sent. jp3 19:33 Kane Magaña NP is PHCP. pm1 19:36 Influenza Screen (a \T\ B) Sent. jd3 20:59 Kamaljit Peralta MD is Referral Physician. pm1 22:04 No provider procedures requiring assistance completed. IV discontinued, intact, ea bleeding controlled, No redness/swelling at site. Pressure dressing applied. Administered Medications: Discontinued: levofloxacin 500 mg 100 ml IVPB once over 60 mins 19:15 Drug: NS 0.9% 1000 ml Route: IV; Rate: 1 bolus; Site: right antecubital; jd3 21:55 Follow up: Response: No adverse reaction; IV Status: Completed infusion; IV Intake: ea 1000ml 19:36 Drug: NS 0.9% 1000 ml Route: IV; Rate: 1 bolus; Site: right antecubital; jd3 20:50 Follow up: Response: No adverse reaction; IV Status: Completed infusion; IV Intake: ea 1000ml 19:36 Drug: Flagyl 500 mg Volume: 100 ml; Route: IVPB; Rate: 200 ml/hr; Infused Over: 30 jd3 mins; Site: right antecubital; 20:09 Follow up: Response: No adverse reaction; IV Status: Completed infusion; IV Intake: ea 100ml 20:10 Drug: levofloxacin 500 mg Volume: 100 ml; Route: IVPB; Infused Over: 60 mins; Site: ea right antecubital; 21:50 Drug: Zofran 4 mg Route: IVP; Site: right antecubital; ea 22:04 Follow up: Response: No adverse reaction; Nausea is decreased ea Point of Care Testing: Blood Glucose: 18:53 Blood Glucose: 125 mg/dL; aa5 Ranges: Intake: 20:09 IV: 100ml; Total: 100ml. ea 20:50 IV: 1000ml; Total: 1100ml. ea 21:55 IV: 1000ml; Total: 2100ml. ea Outcome: 21:00 Discharge ordered by . pm1 22:04 Discharged to home ambulatory, with family. ea 22:04 Condition: stable 22:04 Discharge instructions given to patient, Instructed on discharge instructions, follow up and referral plans. medication usage, Demonstrated understanding of instructions, follow-up care, medications, Prescriptions given X 3. 22:05 Patient left the ED. ea Signatures: Dispatcher [employer] EDNH Jimbo Montoya MD MD cha Martinez, Amelia as Calderon, Audri, RN RN aa5 Kane Magaña, SENIOR LINUX SYSTEMS ADMINISTRATOR SENIOR LINUX SYSTEMS ADMINISTRATOR pm1 Shelby Skaggs RN RN jl7 Charline Sage RN RN ea Davies, Jonathon, RN RN jd3 Pisarski, Jacob jp3 Lashell Wayne RN RN vc Corrections: (The following items were deleted from the chart) 19:17 19:15 Inserted saline lock: 20 gauge in right forearm, using aseptic technique. Blood jp3 collected. jp3 19:17 19:15 Initial lab(s) drawn, by pa, sent to lab. jp3 jp3 :17 19:15 EKG done, by ED staff, reviewed by Jimbo Montoya MD jp3 jp3 19:31 Reassessment: vc pearson 19:39 19:37 Pain: Denies pain. jd3 jd3
--- NOTE | 2019-06-10 21:01 | EDPHYS ---
Physician Documentation [facility] Name: Lynda Tsang Age: 64 yrs Sex: Female : 1955 Arrival Date: 06/10/2019 Time: 18:03 Bed 8 Private MD: Kamaljit Peralta ED Physician Jimbo Montoya HPI: 06/10 19:23 This 64 yrs old Female presents to ER via Ambulatory with complaints of issac Fever, Diarrhea, General Weakness. 19:23 The patient reports fever, that was measured at 101 degrees Fahrenheit. Onset: The issac symptoms/episode began/occurred 3 day(s) ago. Modifying factors: there are no obvious modifying factors. Associated signs and symptoms: Pertinent positives: abdominal pain, cough, diarrhea, sinus congestion, shortness of breath, vomiting. Severity of symptoms: At their worst the symptoms were moderate in the emergency department the symptoms are unchanged. The patient has not experienced similar symptoms in the past. Historical: - Allergies: 18:12 CITRIC ACID; jl7 18:12 Lisinopril; jl7 - Home Meds: 18:12 amlodipine 2.5 mg tab 1 tab once daily [Active]; aspirin 81 mg Oral TbEC 1 tab once jl7 daily [Active]; B Complex Plus Vitamin C 27-49-28-5-300 mg Oral cap [Active]; biotin 5000 mcg Oral [Active]; chlorthalidone 25 mg Oral tab 1 tab once daily [Active]; clopidogrel 75 mg Oral tab 1 tab once daily [Active]; Fish Oil Oral [Active]; Jardiance Oral [Active]; losartan 100 mg Oral tab 1 tab once daily [Active]; Nature's Thyroid [Active]; rosuvastatin 10 mg Oral tab 1 tab once daily [Active]; Vitamin D3 Oral [Active]; - PMHx: 18:12 Diabetes - NIDDM; Hypertension; High Cholesterol; jl7 - PSHx: 18:12 Heart stents; D \T\ C; cataract; rectocele; jl7 - Immunization history:: Adult Immunizations up to date. - Social history:: Smoking status: Patient/guardian denies using tobacco. - Ebola Screening: : No symptoms or risks identified at this time. - Family history:: not pertinent. ROS: 19:23 Constitutional: Negative for fever, chills, and weight loss, Eyes: Negative for injury, issac pain, redness, and discharge, ENT: Negative for injury, pain, and discharge, Neck: Negative for injury, pain, and swelling, Cardiovascular: Negative for chest pain, palpitations, and edema, Back: Negative for injury and pain, : Negative for injury, bleeding, discharge, and swelling, MS/Extremity: Negative for injury and deformity, Skin: Negative for injury, rash, and discoloration, Neuro: Negative for headache, weakness, numbness, tingling, and seizure, Psych: Negative for depression, anxiety, suicide ideation, homicidal ideation, and hallucinations, Allergy/Immunology: Negative for hives, rash, and allergies, Endocrine: Negative for neck swelling, polydipsia, polyuria, polyphagia, and marked weight changes, Hematologic/Lymphatic: Negative for swollen nodes, abnormal bleeding, and unusual bruising. 19:23 Respiratory: Positive for cough. 19:23 Abdomen/GI: Positive for abdominal pain, nausea and vomiting, diarrhea. Exam: 19:23 Constitutional: This is a well developed, well nourished patient who is awake, alert, issac and in no acute distress. Head/Face: Normocephalic, atraumatic. Eyes: Pupils equal round and reactive to light, extra-ocular motions intact. Lids and lashes normal. Conjunctiva and sclera are non-icteric and not injected. Cornea within normal limits. Periorbital areas with no swelling, redness, or edema. ENT: Nares patent. No nasal discharge, no septal abnormalities noted. Tympanic membranes are normal and external auditory canals are clear. Oropharynx with no redness, swelling, or masses, exudates, or evidence of obstruction, uvula midline. Mucous membranes moist. Neck: Trachea midline, no thyromegaly or masses palpated, and no cervical lymphadenopathy. Supple, full range of motion without nuchal rigidity, or vertebral point tenderness. No Meningismus. Chest/axilla: Normal chest wall appearance and motion. Nontender with no deformity. No lesions are appreciated. Cardiovascular: Regular rate and rhythm with a normal S1 and S2. No gallops, murmurs, or rubs. Normal PMI, no JVD. No pulse deficits. Respiratory: Lungs have equal breath sounds bilaterally, clear to auscultation and percussion. No rales, rhonchi or wheezes noted. No increased work of breathing, no retractions or nasal flaring. Abdomen/GI: Soft, non-tender, with normal bowel sounds. No distension or tympany. No guarding or rebound. No evidence of tenderness throughout. Back: No spinal tenderness. No costovertebral tenderness. Full range of motion. Skin: Warm, dry with normal turgor. Normal color with no rashes, no lesions, and no evidence of cellulitis. MS/ Extremity: Pulses equal, no cyanosis. Neurovascular intact. Full, normal range of motion. Neuro: Awake and alert, GCS 15, oriented to person, place, time, and situation. Cranial nerves II-XII grossly intact. Motor strength 5/5 in all extremities. Sensory grossly intact. Cerebellar exam normal. Normal gait. Psych: Awake, alert, with orientation to person, place and time. Behavior, mood, and affect are within normal limits. 19:23 Musculoskeletal/extremity: DVT Exam: No signs of deep vein thrombosis. no pain, no swelling, no tenderness, negative Homans' sign noted on exam, no appreciated bluish discoloration, no erythema, no increased warmth. Vital Signs: 18:12 BP 115 / 62; Pulse 87; Resp 16 S; Temp 98.9(O); Pulse Ox 99% on R/A; jl7 20:50 BP 139 / 57; Pulse 78; Resp 18; Pulse Ox 98% on R/A; ea 21:32 BP 153 / 66; Pulse 67; Resp 18; Pulse Ox 99% on R/A; ea MDM: 18:18 Patient medically screened. [facility] 19:26 Data reviewed: vital signs, nurses notes, lab test result(s), EKG, radiologic studies, [facility] plain films. 20:20 ED course: Discussed case with Dr. Crow. Patient with positive influenza A. Patient pm1 symptoms likely attributed to the flu. No current need to send patient home with antibiotics. Pending stool culture to determine if patient requires antibiotic therapy. Patient is out of 48 hour window for Tamiflu therapy. 20:59 Data interpreted: Pulse oximetry: on room air is 99 %. Interpretation: normal. pm1 Counseling: I had a detailed discussion with the patient and/or guardian regarding: the historical points, exam findings, and any diagnostic results supporting the discharge/admit diagnosis, lab results, radiology results, the need for outpatient follow up, to return to the emergency department if symptoms worsen or persist or if there are any questions or concerns that arise at home. 06/10 18:28 Order name: Basic Metabolic Panel [facility] 06/10 18:28 Order name: CBC with Diff [facility] 06/10 18:28 Order name: LFT's [facility] 06/10 18:28 Order name: Magnesium; Complete Time: 19:41 [facility] 06/10 18:28 Order name: NT PRO-BNP; Complete Time: 19:41 [facility] 06/10 18:28 Order name: PT-INR; Complete Time: 19:23 [facility] 06/10 18:28 Order name: Troponin (emerg Dept Use Only); Complete Time: 19:41 [facility] 06/10 18:28 Order name: Lipase; Complete Time: 19:41 [facility] 06/10 18:28 Order name: Stool Culture [facility] 06/10 18:28 Order name: Fecal Leukocyte Stain [facility] 06/10 18:28 Order name: Urine Culture [facility] 06/10 18:28 Order name: Lactate; Complete Time: 19:34 [facility] 06/10 18:28 Order name: Basic Metabolic Panel; Complete Time: 19:41 [facility] 06/10 18:29 Order name: CBC with Automated Diff; Complete Time: 20:09 [facility] 06/10 18:28 Order name: XRAY Chest (1 view); Complete Time: 19:23 [facility] 06/10 18:28 Order name: EKG; Complete Time: 18:29 [facility] 06/10 18:28 Order name: Cardiac monitoring; Complete Time: 18:53 [facility] 06/10 18:28 Order name: EKG - Nurse/Tech; Complete Time: 18:53 [facility] 06/10 18:28 Order name: IV Saline Lock; Complete Time: 18:53 [facility] 06/10 18:29 Order name: Liver (Hepatic) Function; Complete Time: 19:41 [facility] 06/10 19:03 Order name: Glucose, Ancillary Testing; Complete Time: 19:23 [facility] 06/10 19:17 Order name: CBC Smear Scan; Complete Time: 20:09 [facility] 06/10 19:23 Order name: Influenza Screen (a \T\ B); Complete Time: 20:20 [facility] 06/10 20:36 Order name: Urine Dipstick--Ancillary (enter results); Complete Time: 15:07 [facility] 06/10 18:28 Order name: Labs collected and sent; Complete Time: 18:53 [facility] 06/10 18:28 Order name: O2 Per Protocol; Complete Time: 18:53 [facility] 06/10 18:28 Order name: O2 Sat Monitoring; Complete Time: 18:53 [facility] 06/10 18:28 Order name: Urine Dipstick-Ancillary (obtain specimen); Complete Time: 21:29 [facility] Administered Medications: Discontinued: levofloxacin 500 mg 100 ml IVPB once over 60 mins 19:15 Drug: NS 0.9% 1000 ml Route: IV; Rate: 1 bolus; Site: right antecubital; jd3 21:55 Follow up: Response: No adverse reaction; IV Status: Completed infusion; IV Intake: ea 1000ml 19:36 Drug: NS 0.9% 1000 ml Route: IV; Rate: 1 bolus; Site: right antecubital; jd3 20:50 Follow up: Response: No adverse reaction; IV Status: Completed infusion; IV Intake: ea 1000ml 19:36 Drug: Flagyl 500 mg Volume: 100 ml; Route: IVPB; Rate: 200 ml/hr; Infused Over: 30 jd3 mins; Site: right antecubital; 20:09 Follow up: Response: No adverse reaction; IV Status: Completed infusion; IV Intake: ea 100ml 20:10 Drug: levofloxacin 500 mg Volume: 100 ml; Route: IVPB; Infused Over: 60 mins; Site: ea right antecubital; 21:50 Drug: Zofran 4 mg Route: IVP; Site: right antecubital; ea 22:04 Follow up: Response: No adverse reaction; Nausea is decreased ea Point of Care Testing: Blood Glucose: 18:53 Blood Glucose: 125 mg/dL; aa5 Ranges: Critical Glucose Levels:Adult <50 mg/dl or >400 mg/dl <40 mg/dl or >180 mg/dl Disposition: 06/11 10:11 Co-signature as Attending Physician, Jimbo Montoya MD I agree with the assessment and [facility] plan of care. Disposition: 06/10/19 21:00 Discharged to Home. Impression: Influenza due to identified novel influenza A virus, Vomiting, Cough, Diarrhea, unspecified. - Condition is Stable. - Discharge Instructions: Food Choices to Help Relieve Diarrhea, Adult, Nausea and Vomiting, Adult, Diarrhea, Adult, [id number], Influenza, Adult. - Prescriptions for Zofran 4 mg Oral Tablet - take 1 tablet by ORAL route every 12 hours As needed; 20 tablet. Pepcid 20 mg Oral Tablet - take 1 tablet by ORAL route every 12 hours for 10 days; 20 tablet. Bentyl 20 mg Oral Tablet - take 1 tablet by ORAL route every 6 hours As needed; 20 tablet. - Medication Reconciliation Form, Thank You Letter, Antibiotic Education, Prescription Opioid Use form. - Follow up: Kamaljit Peralta; When: 2 - 3 days; Reason: Recheck today's complaints, Continuance of care, Re-evaluation by your physician. - Problem is new. - Symptoms have improved. Signatures: Dispatcher [employer] EDCT Jimbo Montoya MD MD cha Marinas, Patrick, NP REMEDIATION TECHNICIAN pm1 Shelby Skaggs, RN RN jl7 Charline Sage RN RN Tien Alberto RN RN jd3 Corrections: (The following items were deleted from the chart) 06/10 19:46 18:29 Abdomen Pelvis W [id number] ordered. [facility] 22:05 21:00 06/10/2019 21:00 Discharged to Home. Impression: Influenza due to identified ea novel influenza A virus; Vomiting; Cough; Diarrhea, unspecified. Condition is Stable. Discharge Instructions: Food Choices to Help Relieve Diarrhea, Adult, Diarrhea, Adult, Fever, Adult, Nausea and Vomiting, Adult, Nausea and Vomiting, Adult, [id number], Diarrhea, Adult, Lpwe-[id number], Cough, Adult, [id number], Cough, Adult, Influenza, Adult. Prescriptions for Levaquin 500 mg Oral Tablet - take 1 tablet by ORAL route once daily for 7 days; 7 tablet, Zofran 4 mg Oral Tablet - take 1 tablet by ORAL route every 12 hours As needed; 20 tablet, Pepcid 20 mg Oral Tablet - take 1 tablet by ORAL route every 12 hours for 10 days; 20 tablet. and Forms are Medication Reconciliation Form, Thank You Letter, Antibiotic Education, Prescription Opioid Use. Follow up: Kamaljit Peralta; When: 2 - 3 days; Reason: Recheck today's complaints, Continuance of care, Re-evaluation by your physician. Problem is new. Symptoms have improved. pm1
[2019-06-10 21:37] LABS: Urine Blood 3+ (NEG); Urine Glucose 2+ (NEG); Urine Protein NEGATIVE (NEG)
[2019-06-10] MEDS ORDERED: ONDANSETRON 4 MG/2 ML VIAL ONE (21:42)
[2019-06-11 02:05] VITALS: TEMP 98.9
[2019-06-11 02:07] VITALS: BP 153/66; O2SAT 99
--- NOTE | 2019-06-11 10:41 | EKG ---
Test Date: 2019-06-10 Test Time: 18:53:15 Hog Raiser: MEASUREMENT RESULTS: Intervals: Rate: 86 MT: 164 QRSD: 82 QT: 334 QTc: 399 Arthur: P: 60 MT: 164 QRS: 87 T: -80 INTERPRETIVE STATEMENTS: Normal sinus rhythm Cannot rule out Inferior infarct, age undetermined T wave abnormality, consider lateral ischemia Abnormal ECG Compared to ECG 03/20/2018 04:21:27 Myocardial infarct finding now present T-wave abnormality now present Possible ischemia now present ST (T wave) deviation no longer present Electronically Signed On 06-11-19 10:41:14 [employer] by Joaquin Almazan
== END 2019-06-10 22:05 | disposition home or self-care (01) ==
LOC: ER 18:01
DX: J10.1 Influenza due to other identified influenza virus with other respiratory manifestations (principal); R11.2 Nausea with vomiting, unspecified; R19.7 Diarrhea, unspecified; I10 Essential (primary) hypertension; E11.9 Type 2 diabetes mellitus without complications; E78.00 Pure hypercholesterolemia, unspecified; Z79.82 Long term (current) use of aspirin; Z88.8 Allergy status to other drugs, medicaments and biological substances; Z95.818 Presence of other cardiac implants and grafts
CPT/HCPCS: 96365; 96361; 93005; 87088; 87045; 85025; 87086; 80048; 36415; 83735; 89055; 85610; 82947; 80076; 87046; 83605; 81003; 84484; 83690; 83880; 87804 ×2; 71045; 96375; 99285; J7030 ×2; J2405

== ENCOUNTER 2024-09-08 16:48 | Emergency (ER) | payer OTHER ==
[2024-09-08] MEDS ORDERED: ASPIRIN 81 MG CHEWABLE TABLET ONE (17:32)
[2024-09-08 17:43] LABS: Absolute Basophils 0.1 K/uL (0-0.5); Absolute Eosinophils 0.2 K/uL (0-0.5); Absolute Lymphocytes (CBC) 2.7 K/uL (0.7-4.9); Absolute Monocytes 0.6 K/uL (0.1-1.3); Absolute Neutrophil 5.5 K/uL (1.8-8.0); Basophils % 0.8 % (0-1.3); Eosinophils % 1.7 % (0-4.4); Hematocrit 45.9 % (36.0-45.0); Hemoglobin 15.3 g/dL (12.0-15.0); Lymphocytes % 29.9 % (15.3-44.8); MCH 28.9 pg (27.0-35.0); MCHC 33.4 g/dL (32.0-36.0); MCV 86.6 fL (80-100); MPV 10.4 fL (7.6-11.3); Monocytes % 6.8 % (3.3-12.3); Neutrophils % 60.8 % (41.7-73.7); Platelets 291 thou/uL (152-406); RBC Red Blood Cell Count 5.31 M/uL (3.86-4.86); Red Cell Distribution Width 14.8 % (12.1-15.2)
[2024-09-08 18:02] LABS: ALT/SGPT 26 U/L (13-56); AST/SGOT 26 U/L (15-37); Albumin 3.4 g/dL (3.4-5.0); Albumin/Globulin Ratio 0.8 (1.1-1.8); Alkaline Phosphatase 76 U/L (45-117); Anion Gap 11.4 mEq/L (5.0-15.0); BUN Blood Urea Nitrogen 20 mg/dL (7-18); Bicarbonate 25 mEq/L (21-32); Bilirubin Total 0.5 mg/dL (0.2-1.0); Globulin 4.1 g/dL (2.3-3.5); Glomerular Filtration Rate 45 ml/min (=/>90); Glucose Level 165 mg/dL (74-106); Magnesium 2.2 mg/dL (1.6-2.4); NT PRO-BNP 3680 pg/mL (<125); Potassium 4.4 mEq/L (3.5-5.1); Protein, Total 7.5 g/dL (6.4-8.2); Sodium Level 138 mEq/L (136-145); Troponin High Sensitivity 49.5 pg/mL (<58.9)
[2024-09-08 18:05] LABS: Bilirubin Direct < 0.2 mg/dL (0-0.2); Bilirubin Indirect, Calculated 0.3 mg/dL (0.2-0.8)
--- NOTE | 2024-09-08 18:47 | RAD REPORT ---
EXAMINATION: ONE VIEW CHEST XR CLINICAL INDICATION: CHEST PAIN TECHNIQUE: Frontal chest projection is submitted. Examination is limited by patient positioning and t echnique. COMPARISON: 06/10/2019 FINDINGS: The lungs are well inflated and clear. The heart is normal in size. No displaced fractures identified . Sternotomy wires. IMPRESSION: No acute intrathoracic abnormalities.
--- NOTE | 2024-09-08 19:13 | EDPHYS ---
Physician Documentation [facility] Name: Lynda Tsang Age: 69 yrs Sex: Female : 1955 Arrival Date: 09/08/2024 Time: 16:48 Bed 7 Private MD: ED Physician Ja Mccoy HPI: 09/08 19:17 This 69 yrs old Female presents to ER via Wheelchair with complaints of Chest Pain. rt 19:17 Patient presents to the ED with about 2 months of chest pain, dyspnea. Patient states rt that she checked her watch, which told her she was in A-fib. The patient denies other acute complaints at this time, symptoms are moderate in severity, no other aggravating alleviating factors.. Historical: - Allergies: 17:07 CITRIC ACID; aa5 17:07 Lisinopril; aa5 17:07 "high doses of vicodin and hydrocodone"; aa5 - PMHx: 17:07 Diabetes - NIDDM; High Cholesterol; Hypertension; neuropathy (Unknown); Macular edema aa5 (Unknown); Kidney Disease (Unknown); Fatty Liver (Unknown); Atrial fibrillation; - PSHx: 17:09 heart stents; triple bypass; aa5 - Immunization history:: Adult Immunizations unknown. - Infectious Disease History:: Denies. - Social history:: Smoking status: Patient denies any tobacco usage or history of. - Family history:: not pertinent. ROS: 19:17 Constitutional: Negative for fever, chills, and weight loss, Abdomen/GI: Negative for rt abdominal pain, nausea, vomiting, diarrhea, and constipation, MS/Extremity: Negative for injury and deformity, Skin: Negative for injury, rash, and discoloration, Neuro: Negative for headache, weakness, numbness, tingling, and seizure, 19:17 Cardiovascular: Positive for chest pain, Negative for edema, 19:17 Respiratory: Positive for shortness of breath, Negative for cough, Exam: 19:17 Constitutional: This is a well developed, well nourished patient who is awake, alert, rt and in no acute distress. Head/Face: Normocephalic, atraumatic. Chest/axilla: Normal chest wall appearance and motion. Nontender with no deformity. No lesions are appreciated. Cardiovascular: Regular rate and rhythm with a normal S1 and S2. No gallops, murmurs, or rubs. Normal PMI, no JVD. No pulse deficits. Respiratory: Lungs have equal breath sounds bilaterally, clear to auscultation and percussion. No rales, rhonchi or wheezes noted. No increased work of breathing, no retractions or nasal flaring. Abdomen/GI: Soft, non-tender, with normal bowel sounds. No distension or tympany. No guarding or rebound. No evidence of tenderness throughout. Skin: Warm, dry with normal turgor. Normal color with no rashes, no lesions, and no evidence of cellulitis. MS/ Extremity: Pulses equal, no cyanosis. Neurovascular intact. Full, normal range of motion. Neuro: Awake and alert, GCS 15, oriented to person, place, time, and situation. Cranial nerves II-XII grossly intact. Motor strength 5/5 in all extremities. Sensory grossly intact. Cerebellar exam normal. Normal gait. 19:17 ECG was reviewed by the Attending Physician. Vital Signs: 17:07 BP 135 / 97; Pulse 92; Resp 18 S; Temp 97.9(TE); Pulse Ox 100% on R/A; Weight 89.81 kg aa5 (R); Height 5 ft. 5 in. (R); 18:30 BP 139 / 83; Pulse 76; Resp 15; Pulse Ox 97% on R/A; cm10 19:15 BP 117 / 71; Pulse 95; Resp 15; Pulse Ox 95% on R/A; cm10 19:43 BP 117 / 71; Pulse 78; Resp 12; Temp 97.9(O); Pulse Ox 96% on R/A; Pain 0/10; le1 17:07 Body Mass Index 32.95 (89.81 kg, 165.1 cm) aa5 19:43 Pain Scale: Adult le1 MDM: 17:13 Medical Screening Exam initiated rt 19:17 Differential diagnosis: Dysrhythmia, A-fib, CAD, nonspecific chest pain. The patient rt was given aspirin in the Emergency Department. Data reviewed: vital signs, nurses notes, lab test result(s), EKG, radiologic studies. Consideration of Admission/Observation Escalation of care including admission/observation considered. 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 Strict return precautions were discussed. Given chronicity of symptoms being greater than 6 hours, do not believe that repeat troponin is indicated to rule out acute coronary syndrome.. I considered the following discharge prescriptions or medication management in the emergency department Medications were administered in the Emergency Department. See MAR. Independent interpretation of the following test(s) in the Emergency Department X-Ray: My interpretation is No edema seen on my interpretation of x-ray images. Test considered but Not performed: CT: Low suspicion for pulmonary embolus, CT angiogram not indicated. Care significantly affected by the following chronic conditions: Atrial fibrillation. Counseling: I had a detailed discussion with the patient and/or guardian regarding the historical points, exam findings, and any diagnostic results supporting the discharge/admit diagnosis, lab results, radiology results, the need for outpatient follow up, to return to the emergency department if symptoms worsen or persist or if there are any questions or concerns that arise at home. Response to treatment: the patient's symptoms have markedly improved after treatment. 09/08 17:27 Order name: Basic Metabolic Panel; Complete Time: 18:14 rt 09/08 17:27 Order name: CBC with Diff; Complete Time: 18:14 rt 09/08 17:27 Order name: LFT's; Complete Time: 18:14 rt 09/08 17:27 Order name: Magnesium; Complete Time: 18:14 rt 09/08 17:27 Order name: NT PRO-BNP; Complete Time: 18:14 rt 09/08 17:27 Order name: Troponin HS; Complete Time: 18:14 rt 09/08 17:27 Order name: XRAY Chest (1 view); Complete Time: 18:48 rt 09/08 17:27 Order name: EKG; Complete Time: 17:28 rt 09/08 17:27 Order name: Cardiac monitoring; Complete Time: 17:27 rt 09/08 17:27 Order name: EKG - Nurse/Tech; Complete Time: 17:27 rt 09/08 17:27 Order name: IV Saline Lock; Complete Time: 17:28 rt 09/08 17:27 Order name: Labs collected and sent; Complete Time: 17:39 rt 09/08 17:27 Order name: O2 Per Protocol; Complete Time: 17:28 rt 09/08 17:27 Order name: O2 Sat Monitoring; Complete Time: 17:28 rt EC:17 Rate is 90 beats/min. Rhythm is regular, A flutter with No ectopy, Nonspecific ST and T rt wave change. QRS [place] is Normal. QRS interval is normal. QT interval is normal. No Q waves. Administered Medications: 17:33 Drug: Aspirin PO Chewable Tablet 243 mg PO once; 81 mg tablets x 3 Route: PO; le1 17:57 Follow up: Response: No adverse reaction le1 19:18 Follow up: Response: No adverse reaction cm10 Disposition Summary: 09/08/24 19:13 Discharge Ordered Notes: Location: Home rt Problem: new rt Symptoms: have improved rt Condition: Stable rt Diagnosis - Chest pain, unspecified rt Followup: rt - With: Igor Winston MD - When: 1 - 2 days - Reason: Discharge Instructions: - Discharge Summary Sheet rt - Nonspecific Chest Pain, Adult rt Forms: - Medication Reconciliation Form rt - Antibiotic Education rt - Prescription Opioid Use rt - Patient Portal Instructions rt - Leadership Thank You Letter rt Signatures: Dispatcher [employer] Fabiana Drummond, RN RN aa5 Ja Mccoy MD MD rt Matty Lucero RN RN le1 Rebecca Conn RN cm10 Corrections: (The following items were deleted from the chart) 17:28 17:27 BASIC METABOLIC PANEL+C.LAB.BRZ ordered. EDMS EDMS 17:28 17:27 CBC+H.LAB.BRZ ordered. EDMS EDMS 17:28 17:27 HEPATIC FUNCTION+C.LAB.BRZ ordered. EDMS EDMS 17:28 17:27 MAGNESIUM+C.LAB.BRZ ordered. EDMS EDMS 17:28 17:27 PROBNP+C.LAB.BRZ ordered. EDMS EDMS 17:28 17:27 Troponin High Sensitivity+C.LAB.BRZ ordered. EDMS EDMS
--- NOTE | 2024-09-08 19:13 | ER ---
Nurse's Notes [facility] Name: Lynda Tsang Age: 69 yrs Sex: Female : 1955 Arrival Date: 09/08/2024 Time: 16:48 Bed 7 Private MD: Diagnosis: Chest pain, unspecified Presentation: 09/08 17:07 Acuity: ORESTES 2 aa5 17:07 Chief complaint: Patient states: chest tightness, SOB, and dizziness that began 2 aa5 months ago. Pt states "my apple watch is picking up tachycardia and arrhythmias". 17:07 Coronavirus screen: At this time, the client does not indicate any symptoms associated aa5 with coronavirus-19. Ebola Screen: Patient denies travel to an Ebola-affected area in the 21 days before illness onset. Initial Sepsis Screen: Does the patient meet any 2 criteria? HR > 90 bpm. Does the patient have a suspected source of infection? No. Patient's initial sepsis screen is negative. Risk Assessment: Do you want to hurt yourself or someone else? Patient reports no desire to harm self or others. Onset of symptoms was 2024. 17:07 Method Of Arrival: Wheelchair aa5 Historical: - Allergies: 17:07 CITRIC ACID; aa5 17:07 Lisinopril; aa5 17:07 "high doses of vicodin and hydrocodone"; aa5 - PMHx: 17:07 Diabetes - NIDDM; High Cholesterol; Hypertension; neuropathy (Unknown); Macular edema aa5 (Unknown); Kidney Disease (Unknown); Fatty Liver (Unknown); Atrial fibrillation; - PSHx: 17:09 heart stents; triple bypass; aa5 - Immunization history:: Adult Immunizations unknown. - Infectious Disease History:: Denies. - Social history:: Smoking status: Patient denies any tobacco usage or history of. - Family history:: not pertinent. Screenin:22 [facility] ED Fall Risk Assessment (Adult) History of falling in the last 3 months, le1 including since admission No falls in past 3 months (0 pts) Confusion or Disorientation No (0 pts) Intoxicated or Sedated No (0 pts) Impaired Gait No (0 pts) Mobility Assist Device Used No (0 pt) Altered Elimination No (0 pt) Score/Fall Risk Level 0 - 2 = Low Risk Oriented to surroundings, Maintained a safe environment, Educated pt \\T\\ family on fall prevention, incl call for assistance when getting out of bed, Assessed \\T\\ reinforced patient's understanding of fall precautions, Hourly rounding (assess needs \\T\\ fall precautionary measures) done, Used ambulatory aids as needed (educated on \\T\\ assisted with). Abuse screen: Denies threats or abuse. Denies injuries from another. Nutritional screening: No deficits noted. Tuberculosis screening: No symptoms or risk factors identified. Assessment: 17:20 Also complains of shortness of breath. Tenecteplase (TNKase) screening:. General: le1 Appears uncomfortable, Behavior is cooperative, anxious. Pain: Complains of pain in chest Pain does not radiate. Pain currently is 6 out of 10 on a pain scale. Quality of pain is described as pressure, Pain began 1 day ago. Neuro: No deficits noted. Cardiovascular: Reports chest pain, shortness of breath, Rhythm is atrial fibrillation. Respiratory: Reports shortness of breath at rest. GI: No deficits noted. : No deficits noted. EENT: No deficits noted. Musculoskeletal: No deficits noted. Vital Signs: 17:07 BP 135 / 97; Pulse 92; Resp 18 S; Temp 97.9(TE); Pulse Ox 100% on R/A; Weight 89.81 kg aa5 (R); Height 5 ft. 5 in. (R); 18:30 BP 139 / 83; Pulse 76; Resp 15; Pulse Ox 97% on R/A; cm10 19:15 BP 117 / 71; Pulse 95; Resp 15; Pulse Ox 95% on R/A; cm10 19:43 BP 117 / 71; Pulse 78; Resp 12; Temp 97.9(O); Pulse Ox 96% on R/A; Pain 0/10; le1 17:07 Body Mass Index 32.95 (89.81 kg, 165.1 cm) aa5 19:43 Pain Scale: Adult le1 ED Course: 17:03 EKG done, by ED staff, reviewed by Ja Mccoy MD. le1 17:06 Patient arrived in ED. cm10 17:06 Matty Lucero, RN is Primary Nurse. le1 17:06 Arm band placed on Patient placed in an exam room, on a stretcher. aa5 17:07 Ja Mccoy MD is Attending Physician. rt 17:09 Triage completed. aa5 17:20 Patient has correct armband on for positive identification. Placed in gown. Bed in low le1 position. Call light in reach. Side rails up X2. Provided Education on: informed to use call light if needed. Client placed on continuous cardiac and pulse oximetry monitoring. NIBP monitoring applied. geology faculty member on. Pulse ox on. NIBP on. 17:22 Initial lab(s) drawn, by ED staff, held in ED. Inserted saline lock: 20 gauge in right le1 forearm, using aseptic technique. Blood collected. Flushed with 10 mL NS. Patient maintains SpO2 saturation greater than 95% on room air. 18:39 XRAY Chest (1 view) In Process Unspecified. EDMS 19:12 Igor Winston MD is Referral Physician. rt 19:44 No provider procedures requiring assistance completed. IV discontinued, intact, le1 bleeding controlled, No redness/swelling at site. Pressure dressing applied. Administered Medications: 17:33 Drug: Aspirin PO Chewable Tablet 243 mg PO once; 81 mg tablets x 3 Route: PO; le1 17:57 Follow up: Response: No adverse reaction le1 19:18 Follow up: Response: No adverse reaction cm10 Medication: 19:44 VIS not applicable for this client. le1 Outcome: 19:13 Discharge ordered by . rt 19:44 Discharged to home ambulatory, le1 19:44 Condition: good 19:44 Discharge instructions given to patient, Instructed on discharge instructions, follow up and referral plans. Demonstrated understanding of instructions, follow-up care, 19:45 Patient left the ED. le1 Signatures: Dispatcher [employer] EDCT Fabiana Coronado, RN RN aa5 Ja Mccoy MD MD rt Rebecca Conn RN RN cm10 Matty Lucero RN RN le1
[2024-09-08 19:49] VITALS: TEMP 97.9
[2024-09-08 19:51] VITALS: BP 117/71
[2024-09-08 19:53] VITALS: O2SAT 96
== END 2024-09-08 19:45 | disposition home or self-care (01) ==
LOC: ER 16:48
DX: R07.9 Chest pain, unspecified (principal); R06.02 Shortness of breath; I10 Essential (primary) hypertension; I48.91 Unspecified atrial fibrillation; Z95.1 Presence of aortocoronary bypass graft; Z95.818 Presence of other cardiac implants and grafts
CPT/HCPCS: 36415; 71045; 80048; 80076; 83735; 83880; 84484; 85025; 93005; 99284